=== PATIENT | male | born 1975 | race Caucasian/White ===

== ENCOUNTER 2018-07-05 20:09 | Inpatient (IN) | payer MEDICAID ==
--- NOTE | 2018-07-05 20:41 | C.PDOC ---
History Of Present Illness 42 year old male presents to the ED for evaluation of right flank pain and right upper quadrant pain since this morning. Patient reports some vomiting and red urine. Denies fever, chills, trauma, injuries, and any other associated s ymptoms. Time Seen by Provider: 07/05/18 20:38 Chief Complaint (Nursing): Abdominal Pain History Per: Patient History/Exam Limitations: no limitations Onset/Duration Of Symptoms: Hrs Current Symptoms Are (Timing): Still Present Context: Other Severity: Severe Pain Scale Rating Of: 6 Location Of Pain/Discomfort: RUQ, Epigastric Radiation Of Pain To:: Back Quality Of Discomfort: Sharp, Stabbing Associated Symptoms: Nausea, Vomiting, Back Pain. denies: Fever, Chills Exacerbating Factors: None Alleviating Factors: None Last Bowel Movement: Today Recent travel outside of the [place]: No Additional History Per: Patient, Family Past Medical History Reviewed: Historical Data, Nursing Documentation, Vital Signs Vital Signs: Last Vital Signs Temp 97.9 F 07/05/18 20:29 Pulse 82 07/05/18 20:29 Resp 22 07/05/18 20:29 BP 156/104 H 07/05/18 20:29 Pulse Ox 98 07/05/18 20:29 Family History: States: Unknown Family Hx - Social History Hx Alcohol Use: No Hx Substance Use: No - Immunization History Hx Tetanus Toxoid Vaccination: No Hx Influenza Vaccination: No Hx Pneumococcal Vaccination: No Review Of Systems Constitutional: Negative for: Fever, Chills, Other ((-) trauma. (-) injuries.) Eyes: Negative for: Vision Change Cardiovascular: Negative for: Chest Pain Respiratory: Negative for: Shortness of Breath Gastrointestinal: Positive for: Vomiting, Abdominal Pain (right upper quadrant pain. ), Other (right flank pain.) Genitourinary: Negative for: Dysuria Musculoskeletal: Negative for: Back Pain Skin: Positive for: Jaundice. Negative for: Rash Neurological: Negative for: Weakness Psych: Negative for: Anxiety Physical Exam - Physical Exam Appears: Non-toxic Skin: Warm, Dry, Jaundice Head: Normacephalic Eye(s): bilateral: Normal Inspection, Scleral Icterus Oral Mucosa: Moist Neck: Trachea Midline, Supple Chest: Symmetrical, No Deformity Cardiovascular: Rhythm Regular, No Murmur Respiratory: No Rales, No Rhonchi, No Wheezing Gastrointestinal/Abdominal: Normal Exam, Soft, Tenderness (tenderness over the right upper quandrant and right flank area. ), No Distention, Guarding ( voluntary.), No Rebound Back: Normal Inspection Extremity: Normal ROM Extremity: Bilateral: Atraumatic, Normal ROM Pulses: Left Dorsalis Pedis: Normal, Right Dorsalis Pedis: Normal Neurological/Psych: Oriented x3, Normal Speech, Normal Cognition Gait: Steady ED Course And Treatment - Laboratory Results Result Diagrams: 07/05/18 20:56 07/05/18 20:56 O2 Sat by Pulse Oximetry: 98 (RA) Pulse Ox Interpretation: Normal Progress Note: Plan: Blood sent. Urinalysis. Pepcid. Toradol. Zofran, abx Disposition Discussed With Dr.: Alber Guzman Comment: accepted the pt onhis service and took over the care at 11:37PM Doctor Will See Patient In The: ED Counseled Patient/Family Regarding: Studies Performed, Diagnosis - Disposition Disposition: HOSPITALIZED Disposition Time: 20:41 Condition: FAIR Forms: Motiga (Arabic) - Clinical Impression Clinical Impression: Jaundice, Duodenitis, Elevated liver enzymes, Pancreatitis, Abdominal pain - Scribe Statement The provider has reviewed the documentation as recorded by the Scribe (Kristyn Wilkins) Provider Attestation: All medical record entries made by the Scribe were at my direction and personally dictated by me. I have reviewed the chart and agree that the record accurately reflects my personal performance of the history, physical exam, medical decision making, and the department course for this patient. I have also personally directed, reviewed, and agree with the discharge instructions and disposition. Decision To Admit - Pt Status Changed To: Hospital Disposition Of: Inpatient - Admit Certification Admit to Inpatient:: After my assessment, the patient will require hospitalization for at least two midnights. This is because of the severity of symptoms shown, intensity of services needed, and/or the medical risk in this patient being treated as an outpatient. - InPatient: Physician Admission Certification:: After my assessment, the patient will require hospitalization for at least two midnights. This is because of the severity of symptoms shown, intensity of services needed, and/or the medical risk in this patient being treated as an outpatient. - . Bed Request Type: Regular Admitting Physician: Alber Guzman Patient Diagnosis: Abdominal pain, Jaundice, Elevated liver enzymes, Pancreatitis, Duodenitis
[2018-07-05] MEDS ORDERED: Sodium Chloride 0.9% 2,000 ML IV ONE (20:43)
[2018-07-05 21:03] LABS: BASO # 0.1 K/uL (0.0-0.2); EOS % 0.2 % (0.0-4.0)
[2018-07-05 21:11] LABS: BASO % 0.4 % (0.0-2.0); LYMPH # 1.2 K/uL (1.0-4.3); LYMPH % 8.7 % (20.0-40.0); MEAN CELL VOLUME 87.5 fL (80.0-94.0); MEAN CORPUSCULAR HEMOGLOBIN 30.2 pg (27.0-31.0); MEAN CORPUSCULAR HGB CONC 34.5 g/dL (33.0-37.0); MEAN PLATELET VOLUME 8.7 fL (7.2-11.7); MONO # 1.1 K/uL (0.0-0.8); MONO % 8.2 % (0.0-10.0); NEUT # 11.3 K/uL (1.8-7.0); NEUT % 82.5 % (50.0-75.0); NRBC % 0.2 % (0.0-2.0); PLATELET COUNT 249 K/uL (130-400); RBC 5.96 Mil/uL (4.40-5.90); RED CELL DISTRIBUTION WIDTH 14.4 % (11.5-14.5); WHITE BLOOD COUNT 13.7 K/uL (4.8-10.8)
[2018-07-05 21:19] LABS: ALB/GLOB RATIO 1.2 (1.0-2.1); ALBUMIN 4.5 g/dL (3.5-5.0); ALT/SGPT 675 U/L (21-72); AST/SGOT 442 U/L (17-59); BLOOD UREA NITROGEN 15 mg/dL (9-20); CALCIUM 9.6 mg/dl (8.6-10.4); GFR NON-AFRICAN AMERICAN 51
[2018-07-05] MEDS ORDERED: Piperacillin/Tazobact 3.375 gm 100 ML IVPB STA (21:20)
[2018-07-05 21:21] LABS: INR 1.1; PROTHROMBIN TIME 11.6 SECONDS (9.7-12.2)
[2018-07-05 21:30] LABS: BANDS 1 % (0-2); LYMPHOCYTE 13 % (20-40); MONOCYTE 9 % (0-10); NEUTROPHIL 76 % (50-75); PLATELET CLUMPS PRESENT; REACTIVE LYMPHOCYTES 1 % (0-0); TOTAL CELLS COUNTED 100
[2018-07-05 21:31] LABS: PLATELET ESTIMATE NORMAL (NORMAL)
[2018-07-05] MEDS ORDERED: Piperacillin/Tazobact 3.375 gm 100 ML IVPB ONE (21:38)
[2018-07-05 21:45] LABS: LIPASE 17967 U/L (23-300)
[2018-07-05 21:48] LABS: SQUAMOUS EPITHIAL 1 /hpf (0-5); URINE BACTERIA RARE (<OCC); URINE BILIRUBIN 2+ (NEGATIVE); URINE BLOOD NEGATIVE (NEGATIVE); URINE CLARITY Hazy (Clear); URINE COLOR Amber (YELLOW); URINE GLUCOSE (UA) NORMAL (Normal); URINE LEUKOCYTE ESTERASE NEG Leu/uL (Negative); URINE PROTEIN 1+ mg/dL (NEGATIVE)
[2018-07-05] MEDS ORDERED: Iodixanol 320 MG/ML 100 ML BOTTLE IV ONE (21:48)
[2018-07-05] MEDS ORDERED: metroNIDAZOLE IV 500 mg/100 ml 500 MG/100 ML BAG IVPB SCH (23:45)
[2018-07-06] MEDS ORDERED: Lactated Ringer's 1,000 ML IV ONE ×2 (05:33→05:34)
[2018-07-06] MEDS ORDERED: Potassium Ch 20mEq in D5-1/2NS 1,000 ML IV SCH (05:45)
--- NOTE | 2018-07-06 05:49 | CP.PCM.HP ---
<Alber Guzman P - Last Filed: 07/06/18 09:04> Meds Allergies/Adverse Reactions: Allergies Allergy/AdvReac Type Severity Reaction Status Date / Time No Known Allergies Allergy Verified 07/05/18 20:34 Results - Vital Signs Recent Vital Signs: Last Vital Signs Temp 98.1 F 07/06/18 07:09 Pulse 72 07/06/18 07:09 Resp 20 07/06/18 07:09 BP 126/77 07/06/18 07:09 Pulse Ox 96 07/06/18 07:09 - Labs Result Diagrams: 07/05/18 20:56 07/05/18 20:56 Labs: Laboratory Results - last 24 hr 07/05/18 07/05/18 07/05/18 20:56 20:56 20:56 WBC 13.7 H RBC 5.96 H Hgb 18.0 Hct 52.1 H MCV 87.5 MCH 30.2 MCHC 34.5 RDW 14.4 Plt Count 249 MPV 8.7 Neut % (Auto) 82.5 H Lymph % (Auto) 8.7 L [place] % (Auto) 8.2 Eos % (Auto) 0.2 Baso % (Auto) 0.4 Neut # (Auto) 11.3 H Lymph # (Auto) 1.2 [place] # (Auto) 1.1 H Eos # (Auto) 0.0 Baso # (Auto) 0.1 Neutrophils % (Manual) 76 H Band Neutrophils % 1 Lymphocytes % (Manual) 13 L Reactive Lymphs % 1 H Monocytes % (Manual) 9 Platelet Estimate Normal Plt Clumps, EDTA Present RBC Morphology Normal PT 11.6 INR 1.1 APTT 32 Sodium 139 Potassium 4.1 Chloride 102 Carbon Dioxide 25 Anion Gap 16 BUN 15 Creatinine 1.5 Est GFR ( Amer) > 60 Est GFR (Non-Af Amer) 51 Random Glucose 122 H Calcium 9.6 Total Bilirubin 5.6 H AST 442 H ALT 675 H Alkaline Phosphatase 196 H Total Protein 8.2 Albumin 4.5 Globulin 3.7 Albumin/Globulin Ratio 1.2 Lipase 53355 H Urine Color Urine Clarity Urine pH Ur Specific [place] Urine Protein Urine Glucose (UA) Urine Ketones Urine Blood Urine Nitrate Urine Bilirubin Urine Urobilinogen Ur Leukocyte Esterase Urine WBC (Auto) Urine RBC (Auto) Ur Squamous Epith Cells Urine Bacteria 07/05/18 21:10 WBC RBC Hgb Hct MCV MCH MCHC RDW Plt Count MPV Neut % (Auto) Lymph % (Auto) [place] % (Auto) Eos % (Auto) Baso % (Auto) Neut # (Auto) Lymph # (Auto) [place] # (Auto) Eos # (Auto) Baso # (Auto) Neutrophils % (Manual) Band Neutrophils % Lymphocytes % (Manual) Reactive Lymphs % Monocytes % (Manual) Platelet Estimate Plt Clumps, EDTA RBC Morphology PT INR APTT Sodium Potassium Chloride Carbon Dioxide Anion Gap BUN Creatinine Est GFR ( Amer) Est GFR (Non-Af Amer) Random Glucose Calcium Total Bilirubin AST ALT Alkaline Phosphatase Total Protein Albumin Globulin Albumin/Globulin Ratio Lipase Urine Color [place] Urine Clarity Hazy Urine pH 5.0 Ur Specific [place] 1.019 Urine Protein 1+ H Urine Glucose (UA) Normal Urine Ketones Negative Urine Blood Negative Urine Nitrate Negative Urine Bilirubin 2+ H Urine Urobilinogen 4.0 Ur Leukocyte Esterase Neg Urine WBC (Auto) 1 Urine RBC (Auto) 1 Ur Squamous Epith Cells 1 Urine Bacteria Rare Attending/Attestation - Attestation I have personally seen and examined this patient.: Yes I have fully participated in the care of the patient.: Yes I have reviewed all pertinent clinical information: Yes Notes (Text): 07/06/18 09:04 * Suspect gall stone pancreatitis * H/o hiatal hernia * Tobacco abuse, counselled Plan * MRCP * USG * GI consult * NPO * IVF * PPI, dvt prophylaxis * Surg consult eventually will need gb removal * See orders for detail. 07/06/18 09:07 <Phoebe Springer P - Last Filed: 07/06/18 09:32> History of Present Illness - History of Present Illness History of Present Illness: H&P for hospitalist service CC: Abdominal pain HPI: 42 year old male with no PMHx presents to ED complaining of stabbing RUQ abdominal and R flank pain that began gradually 2 nights ago and severely worsened yesterday morning. Pain worsens with lying down and improves immediately after vomiting. Patient states he has had nausea and vomiting at bedtime and after eating "for years", but now N/V are persistent since yesterday. States he has not been able to tolerate PO intake in the last day. Patient also reports dark urine, which he experienced previously when he was living in [place] and improved after taking antibiotics. Patent also reports intermittent diarrhea. Denies fever, chills, diaphoresis, melena, hematochezia, hematemesis, weight loss, dysuria, hematuria, urinary frequency, chest pain, palpitations, shortness of breath, and cough. PMHx: Denies PSHx: Denies Meds: None Allergies: NKDA FamHx: Denies SocHx: Smokes 1ppd, denies alcohol and drugs Review of Systems: -Gen: No fever, No chills, No headache, No lethargy, No weakness. -HEENT: No dizziness, No change in vision, No change in hearing, No sore throat, No dysphagia, No nasal congestion, No mucous. -Cardio: No chest pain, No palpitations, No lower extremity edema, No orthopnea. -Resp: No cough, No dyspnea, No hemoptysis, No wheezing, No pain on insp iration. -GI: + abdominal pain, + nausea/vomiting, + diarrhea, No constipation, No hematochezia, No hematemesis. -: No dysuria, No urinary freq, No incontinence, No hematuria, No change in urinary stream. -MSK: No back pain, No muscle weakness, No radiating pain. -Skin: No itching,+jaundice, No lesions. -Neuro: No confusion, No numbness, No tingling, No focal weakness, No radicular pain, No syncope. -Psych: No anxiety, No depression, No H/I, No S/I, No hallucinations. Present on Admission - Present on Admission Any Indicators Present on Admission: No Past Patient History - Past Medical History & Family History Past Medical History?: No - Past Social History Smoking Status: Heavy Smoker > 10 Cigarettes Daily - CARDIAC Hx Cardiac Disorders: No - PULMONARY Hx Respiratory Disorders: No - NEUROLOGICAL Hx Neurological Disorder: No - HEENT Hx HEENT Problems: No - RENAL Hx Chronic Kidney Disease: No - ENDOCRINE/METABOLIC Hx Endocrine Disorders: No - HEMATOLOGICAL/ONCOLOGICAL Hx Blood Disorders: No - INTEGUMENTARY Hx Dermatological Problems: No - MUSCULOSKELETAL/RHEUMATOLOGICAL Hx Musculoskeletal Disorders: No Hx Falls: No - GASTROINTESTINAL Hx Gastrointestinal Disorders: No - GENITOURINARY/GYNECOLOGICAL Hx Genitourinary Disorders: No - PSYCHIATRIC Hx Psychophysiologic Disorder: No Hx Substance Use: No - SURGICAL HISTORY Hx Surgeries: No - ANESTHESIA Hx Anesthesia: No Physical Exam - Constitutional Appears: Other (uncomfortable in pain) - Head Exam Head Exam: ATRAUMATIC, NORMOCEPHALIC - Eye Exam Eye Exam: EOMI, PERRL, Scleral icterus - ENT Exam ENT Exam: Mucous Membranes Dry - Neck Exam Neck exam: Positive for: Full Rom, Normal Inspection - Respiratory Exam Respiratory Exam: Clear to Auscultation Bilateral. absent: Rales, Rhonchi, Wheezes - Cardiovascular Exam Cardiovascular Exam: RRR, +S1, +S2 - GI/Abdominal Exam GI & Abdominal Exam: Normal Bowel Sounds, Organomegaly (Hepatomegaly), Soft, Tenderness (RUQ). absent: Guarding, Rebound - Extremities Exam Extremities exam: Positive for: normal inspection. Negative for: calf te nderness, pedal edema - Neurological Exam Neurological exam: Alert, CN II-XII Intact, Oriented x3 - Psychiatric Exam Psychiatric exam: Normal Affect, Normal Mood - Skin Skin Exam: Dry, Intact (jaundiced), Warm Results - Vital Signs Recent Vital Signs: Last Vital Signs Temp 97.3 F L 07/06/18 01:33 Pulse 66 07/06/18 01:33 Resp 20 07/06/18 01:33 BP 129/83 07/06/18 01:33 Pulse Ox 98 07/06/18 01:33 - Labs Result Diagrams: 07/05/18 20:56 07/05/18 20:56 Labs: Laboratory Results - last 24 hr 07/05/18 07/05/18 07/05/18 20:56 20:56 20:56 WBC 13.7 H RBC 5.96 H Hgb 18.0 Hct 52.1 H MCV 87.5 MCH 30.2 MCHC 34.5 RDW 14.4 Plt Count 249 MPV 8.7 Neut % (Auto) 82.5 H Lymph % (Auto) 8.7 L [place] % (Auto) 8.2 Eos % (Auto) 0.2 Baso % (Auto) 0.4 Neut # (Auto) 11.3 H Lymph # (Auto) 1.2 [place] # (Auto) 1.1 H Eos # (Auto) 0.0 Baso # (Auto) 0.1 Neutrophils % (Manual) 76 H Band Neutrophils % 1 Lymphocytes % (Manual) 13 L Reactive Lymphs % 1 H Monocytes % (Manual) 9 Platelet Estimate Normal Plt Clumps, EDTA Present RBC Morphology Normal PT 11.6 INR 1.1 APTT 32 Sodium 139 Potassium 4.1 Chloride 102 Carbon Dioxide 25 Anion Gap 16 BUN 15 Creatinine 1.5 Est GFR ( Amer) > 60 Est GFR (Non-Af Amer) 51 Random Glucose 122 H Calcium 9.6 Total Bilirubin 5.6 H AST 442 H ALT 675 H Alkaline Phosphatase 196 H Total Protein 8.2 Albumin 4.5 Globulin 3.7 Albumin/Globulin Ratio 1.2 Lipase 18350 H Urine Color Urine Clarity Urine pH Ur Specific [place] Urine Protein Urine Glucose (UA) Urine Ketones Urine Blood Urine Nitrate Urine Bilirubin Urine Urobilinogen Ur Leukocyte Esterase Urine WBC (Auto) Urine RBC (Auto) Ur Squamous Epith Cells Urine Bacteria 07/05/18 21:10 WBC RBC Hgb Hct MCV MCH MCHC RDW Plt Count MPV Neut % (Auto) Lymph % (Auto) [place] % (Auto) Eos % (Auto) Baso % (Auto) Neut # (Auto) Lymph # (Auto) [place] # (Auto) Eos # (Auto) Baso # (Auto) Neutrophils % (Manual) Band Neutrophils % Lymphocytes % (Manual) Reactive Lymphs % Monocytes % (Manual) Platelet Estimate Plt Clumps, EDTA RBC Morphology PT INR APTT Sodium Potassium Chloride Carbon Dioxide Anion Gap BUN Creatinine Est GFR ( Amer) Est GFR (Non-Af Amer) Random Glucose Calcium Total Bilirubin AST ALT Alkaline Phosphatase Total Protein Albumin Globulin Albumin/Globulin Ratio Lipase Urine Color [place] Urine Clarity Hazy Urine pH 5.0 Ur Specific [place] 1.019 Urine Protein 1+ H Urine Glucose (UA) Normal Urine Ketones Negative Urine Blood Negative Urine Nitrate Negative Urine Bilirubin 2+ H Urine Urobilinogen 4.0 Ur Leukocyte Esterase Neg Urine WBC (Auto) 1 Urine RBC (Auto) 1 Ur Squamous Epith Cells 1 Urine Bacteria Rare Assessment & Plan - Assessment and Plan (Free Text) Plan: 42 year old male with no PMHx presents to ED complaining of burning RUQ abdominal pain, nausea, and vomiting. Abdominal pain duodenitis Pancreatitis Lipase: 59873 CT abdomen/Pelvis: findings consistent with severe acute duodenitis with probable recently perforated duodenal ulcer. (see full report) F/u RUQ ultrasound, MRCP NPO except ice chips Ceftriaxone 1g IV daily Flagyl 500mg IV Q8H Zofran 4mg Q6H PRN IVF Stool ova and parasite GI consult, help appreciated. Transaminitis -AST: 442 -ALT: 675 -Alk Phos: 196 -monitor Ppx SCDs No chemical anticoagulation indicated at this time protonix 40 daily
[2018-07-06] MEDS: metroNIDAZOLE IV 500 mg/100 ml 500 MG/100 ML BAG IVPB SCH ×3 (07:00→21:26)
--- NOTE | 2018-07-06 08:57 | CP.PCM.CON ---
History of Present Illness - History of Present Illness History of Present Illness: 42 yo male denies etoh use, admitted with abdom pain. Found to have elev lipase and LFTs. Review of Systems - Constitutional Constitutional: absent: Fever, Weight Gain - Cardiovascular Cardiovascular: absent: Chest Pain, Dyspnea - Respiratory Respiratory: absent: Dyspnea, Hemoptysis, Wheezing - Gastrointestinal Gastrointestinal: Abdominal Pain, Diarrhea. absent: Coffee Ground Emesis, Dysphagia, Hematemesis, Hematochezia, Melena - Genitourinary Genitourinary: absent: Hematuria - Musculoskeletal Musculoskeletal: absent: Muscle Cramps - Integumentary Integumentary: Jaundice. absent: Rash - Neurological Neurological: absent: Convulsions Past Patient History - Past Medical History & Family History Past Medical History?: No - Past Social History Smoking Status: Heavy Smoker > 10 Cigarettes Daily - CARDIAC Hx Cardiac Disorders: No - PULMONARY Hx Respiratory Disorders: No - NEUROLOGICAL Hx Neurological Disorder: No - HEENT Hx HEENT Problems: No - RENAL Hx Chronic Kidney Disease: No - ENDOCRINE/METABOLIC Hx Endocrine Disorders: No - HEMATOLOGICAL/ONCOLOGICAL Hx Blood Disorders: No - INTEGUMENTARY Hx Dermatological Problems: No - MUSCULOSKELETAL/RHEUMATOLOGICAL Hx Musculoskeletal Disorders: No Hx Falls: No - GASTROINTESTINAL Hx Gastrointestinal Disorders: No - GENITOURINARY/GYNECOLOGICAL Hx Genitourinary Disorders: No - PSYCHIATRIC Hx Psychophysiologic Disorder: No Hx Substance Use: No - SURGICAL HISTORY Hx Surgeries: No - ANESTHESIA Hx Anesthesia: No Meds Allergies/Adverse Reactions: Allergies Allergy/AdvReac Type Severity Reaction Status Date / Time No Known Allergies Allergy Verified 07/05/18 20:34 - Medications Medications: Current Medications Metronidazole (Flagyl) 500 mg in 100 mls @ 100 mls/hr IVPB STAT [facility]ONG; Protocol Last Admin: 07/06/18 06:53 Dose: 100 mls/hr Metronidazole (Flagyl) 500 mg in 100 mls @ 100 mls/hr IVPB Q8H [facility]; Protocol Last Admin: 07/06/18 07:00 Dose: Not Given Ceftriaxone Sodium (Rocephin Iv 1 Gm Duplex) 50 mls @ 100 mls/hr IVPB DAILY [facility]; Protocol Potassium Chloride/Dextrose/Sod Cl (Potassium Chl 20 Meq In D5-1/2ns) 1,000 mls @ 100 mls/hr IV .Q10H [facility]ONG Last Admin: 07/06/18 06:52 Dose: 100 mls/hr Influenza Virus Vaccine (Fluzone Quad [id number]) 60 mcg IM .ONCE ONE Stop: 07/07/18 10:01 Ketorolac Tromethamine (Toradol) 15 mg IVP Q6 [facility] Last Admin: 07/06/18 07:02 Dose: 15 mg Ondansetron HCl (Zofran Inj) 4 mg IVP Q6H PRN PRN Reason: Nausea/Vomiting Last Admin: 07/06/18 06:50 Dose: 4 mg Pantoprazole Sodium (Protonix Inj) 40 mg IVP DAILY [facility] Physical Exam - Constitutional Appears: Non-toxic - Respiratory Exam Respiratory Exam: Clear to Auscultation Bilateral - Cardiovascular Exam Cardiovascular Exam: RRR - GI/Abdominal Exam GI & Abdominal Exam: Normal Bowel Sounds, Soft, Tenderness. absent: Guarding, Mass, Rebound, Rigid Additional comments: mild epig tenderness - Extremities Exam Extremities exam: Negative for: pedal edema - Neurological Exam Neurological exam: Alert, Oriented x3 Results - Vital Signs Recent Vital Signs: Last Vital Signs Temp 98.1 F 07/06/18 07:09 Pulse 72 07/06/18 07:09 Resp 20 07/06/18 07:09 BP 126/77 07/06/18 07:09 Pulse Ox 96 07/06/18 07:09 - Labs Result Diagrams: 07/05/18 20:56 07/05/18 20:56 Labs: Laboratory Results - last 24 hr 07/05/18 07/05/18 07/05/18 20:56 20:56 20:56 WBC 13.7 H RBC 5.96 H Hgb 18.0 Hct 52.1 H MCV 87.5 MCH 30.2 MCHC 34.5 RDW 14.4 Plt Count 249 MPV 8.7 Neut % (Auto) 82.5 H Lymph % (Auto) 8.7 L [place] % (Auto) 8.2 Eos % (Auto) 0.2 Baso % (Auto) 0.4 Neut # (Auto) 11.3 H Lymph # (Auto) 1.2 [place] # (Auto) 1.1 H Eos # (Auto) 0.0 Baso # (Auto) 0.1 Neutrophils % (Manual) 76 H Band Neutrophils % 1 Lymphocytes % (Manual) 13 L Reactive Lymphs % 1 H Monocytes % (Manual) 9 Platelet Estimate Normal Plt Clumps, EDTA Present RBC Morphology Normal PT 11.6 INR 1.1 APTT 32 Sodium 139 Potassium 4.1 Chloride 102 Carbon Dioxide 25 Anion Gap 16 BUN 15 Creatinine 1.5 Est GFR ( Amer) > 60 Est GFR (Non-Af Amer) 51 Random Glucose 122 H Calcium 9.6 Total Bilirubin 5.6 H AST 442 H ALT 675 H Alkaline Phosphatase 196 H Total Protein 8.2 Albumin 4.5 Globulin 3.7 Albumin/Globulin Ratio 1.2 Lipase 95125 H Urine Color Urine Clarity Urine pH Ur Specific [place] Urine Protein Urine Glucose (UA) Urine Ketones Urine Blood Urine Nitrate Urine Bilirubin Urine Urobilinogen Ur Leukocyte Esterase Urine WBC (Auto) Urine RBC (Auto) Ur Squamous Epith Cells Urine Bacteria 07/05/18 21:10 WBC RBC Hgb Hct MCV MCH MCHC RDW Plt Count MPV Neut % (Auto) Lymph % (Auto) [place] % (Auto) Eos % (Auto) Baso % (Auto) Neut # (Auto) Lymph # (Auto) [place] # (Auto) Eos # (Auto) Baso # (Auto) Neutrophils % (Manual) Band Neutrophils % Lymphocytes % (Manual) Reactive Lymphs % Monocytes % (Manual) Platelet Estimate Plt Clumps, EDTA RBC Morphology PT INR APTT Sodium Potassium Chloride Carbon Dioxide Anion Gap BUN Creatinine Est GFR ( Amer) Est GFR (Non-Af Amer) Random Glucose Calcium Total Bilirubin AST ALT Alkaline Phosphatase Total Protein Albumin Globulin Albumin/Globulin Ratio Lipase Urine Color [place] Urine Clarity Hazy Urine pH 5.0 Ur Specific [place] 1.019 Urine Protein 1+ H Urine Glucose (UA) Normal Urine Ketones Negative Urine Blood Negative Urine Nitrate Negative Urine Bilirubin 2+ H Urine Urobilinogen 4.0 Ur Leukocyte Esterase Neg Urine WBC (Auto) 1 Urine RBC (Auto) 1 Ur Squamous Epith Cells 1 Urine Bacteria Rare Assessment & Plan (1) Abdominal pain Assessment and Plan: pancreatitis Status: Acute (2) Elevated liver enzymes Assessment and Plan: consider hepatitis or biliary dis Status: Acute (3) Jaundice Status: Acute (4) Pancreatitis Assessment and Plan: Denies ETOH. Denies cocaine. Consider lipids, biliary stone. REC: Check sono, CT. Check lipid profile, CHAD, hep profile. NPO. Check MRCP. IV fluids 250 cc's/hr, Above discussed with Dr Choi and RN. Status: Acute
[2018-07-06] MEDS ORDERED: cefTRIAXone 2 GM in Sodium Chloride 0.9% 100 ML IVPB SCH (10:00)
--- NOTE | 2018-07-06 10:37 | CP.PCM.PN ---
<Ana Rosa Choi - Last Filed: 07/06/18 15:39> Subjective - Date & Time of Evaluation Date of Evaluation: 07/06/18 Time of Evaluation: 10:37 - Subjective Subjective: Patient seen and examined at bedside this morning with Dr. Marquez, attending. Patient states his pain has gone down from 10+/10 to 3-4/10. He denies chest pain, SOB, nausea/vomiting (resolved), fever, chills, night sweats. Patient states he has not eaten for 48 hours. 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 Objective - Vital Signs/Intake and Output Vital Signs (last 24 hours): Temp Pulse Resp BP Pulse Ox 98.1 F 72 20 126/77 96 07/06/18 07:09 07/06/18 07:09 07/06/18 07:09 07/06/18 07:09 07/06/18 07:09 - Medications Medications: Current Medications Metronidazole (Flagyl) 500 mg in 100 mls @ 100 mls/hr IVPB Q8H [facility]; Protocol Last Admin: 07/06/18 07:00 Dose: Not Given Ceftriaxone Sodium (Rocephin Iv 1 Gm Duplex) 50 mls @ 100 mls/hr IVPB DAILY [facility]; Protocol Sodium Chloride (Sodium Chloride 0.9%) 1,000 mls @ 200 mls/hr IV .Q5H [facility] Stop: 07/06/18 15:00 Sodium Chloride (Sodium Chloride 0.9%) 1,000 mls @ 200 mls/hr IV .Q5H [facility] Stop: 07/06/18 20:00 Sodium Chloride (Sodium Chloride 0.9%) 1,000 mls @ 200 mls/hr IV .Q5H [facility] Stop: 07/07/18 01:00 Influenza Virus Vaccine (Fluzone Quad [id number]) 60 mcg IM .ONCE ONE Stop: 07/07/18 10:01 Ketorolac Tromethamine (Toradol) 15 mg IVP Q6 [facility] Last Admin: 07/06/18 07:02 Dose: 15 mg Ondansetron HCl (Zofran Inj) 4 mg IVP Q6H PRN PRN Reason: Nausea/Vomiting Last Admin: 07/06/18 06:50 Dose: 4 mg Pantoprazole Sodium (Protonix Inj) 40 mg IVP DAILY [facility] Last Admin: 07/06/18 09:46 Dose: 40 mg - Labs Labs: 07/05/18 20:56 07/05/18 20:56 PT 11.6 SECONDS (9.7-12.2) 07/05/18 20:56 INR 1.1 07/05/18 20:56 APTT 32 SECONDS (21-34) 07/05/18 20:56 - Constitutional Appears: Well, Non-toxic - Head Exam Head Exam: ATRAUMATIC, NORMAL INSPECTION - Eye Exam Eye Exam: EOMI, Normal appearance Additional comments: no scleral icterus - ENT Exam ENT Exam: Mucous Membranes Moist, Normal Exam Additional comments: slightly jaundiced frenulum tongue - Neck Exam Neck Exam: Normal Inspection. absent: Lymphadenopathy, Meningismus, Tenderness, Thyromegaly - Respiratory Exam Respiratory Exam: Clear to Ausculation Bilateral, NORMAL BREATHING PATTERN. absent: Rales, Rhonchi, Wheezes, Respiratory Distress, Stridor - Cardiovascular Exam Cardiovascular Exam: REGULAR RHYTHM. absent: Diastolic murmur, Irregular Rhythm, Murmur - GI/Abdominal Exam GI & Abdominal Exam: Soft, Normal Bowel Sounds. absent: Firm, Guarding Additional comments: mild tenderness to palpation epigastrum - Extremities Exam Extremities Exam: Normal Capillary Refill, Normal Inspection. absent: Tenderness Additional comments: peripheral pulses strong, no edema - Back Exam Back Exam: NORMAL INSPECTION. absent: CVA tenderness (L), CVA tenderness (R) - Neurological Exam Neurological Exam: Alert, Awake, Oriented x3 - Psychiatric Exam Psychiatric exam: Normal Affect, Normal Mood - Skin Skin Exam: Dry, Intact, Normal Color, Warm Assessment and Plan - Assessment and Plan (Free Text) Assessment: 42 year old male with no PMHx presents to ED complaining of burning RUQ abdominal pain, nausea, and vomiting. Admitted for possible gallstone pancreatitis. Pancreatitis [place] [id number] abdomen/Pelvis: findings consistent with severe acute duodenitis with probable recently perforated duodenal ulcer. (see full report). -MRCP w/ contrast ordered per request of Dr. Turner, GI -NPO except ice chips, then post MRCP if no further work up can gradually advance diet -Ceftriaxone 1g IV daily (started 07/06 at 8:59am) -Flagyl 500mg IV Q8H (started in the ED x 1 on 07/05 at 21:20, then continued inpatient 07/06) -Zofran 4mg Q6H PRN -IVF 100 cc/h increased to 200 cc/hr, until about 1am then mIVF at 130 mL/hr; will inform night team -pending Stool ova and parasites -GI consulted (Dr. Suarez consulted on admission) Transaminitis -On admission: AST: 442, ALT: 675, Alk Phos: 196. Not consistent pattern w/ EtOH liver disease and patient denies EtOH. Likely 2/2 gallstone pancreatitis (admission TBili 5.6), but will need MRCP to confirm. -pending hepatitis panel -CMP qAM, trend LFTs GERD/Hiatal hernia -Per CT abd/pelvis, patient w/ hiatal hernia, which is consistent with his complaint of acid reflux -He will need to be d/josé with PPI and f/u with primary care. If not resolved, possible elective surgery -Inpatient, pt to have protonix 40 mg IV daily Ppx DVT: SCDs GI: protonix 40mg IV daily Diet: NPO Case d/w Dr. Venita Choi, DO PGY1 <Michael Marquez - Last Filed: 07/07/18 20:43> Objective - Vital Signs/Intake and Output Vital Signs (last 24 hours): Temp Pulse Resp BP Pulse Ox 98.3 F 80 20 125/79 95 07/07/18 16:00 07/07/18 16:00 07/07/18 16:00 07/07/18 16:00 07/07/18 16:00 Intake and Output: 07/07/18 07/08/18 18:59 06:59 Intake Total 1600 Balance 1600 - Medications Medications: Current Medications Sodium Chloride (Sodium Chloride 0.9%) 1,000 mls @ 200 mls/hr IV .Q5H [facility] Last Admin: 07/07/18 09:50 Dose: 200 mls/hr Ketorolac Tromethamine (Toradol) 15 mg IVP Q6 [facility] Last Admin: 07/07/18 17:31 Dose: 15 mg Ondansetron HCl (Zofran Inj) 4 mg IVP Q6H PRN PRN Reason: Nausea/Vomiting Last Admin: 07/06/18 06:50 Dose: 4 mg Pantoprazole Sodium (Protonix Inj) 40 mg IVP DAILY [facility] Last Admin: 07/07/18 09:51 Dose: 40 mg - Labs Labs: 07/07/18 11:44 07/07/18 11:44 PT 11.6 SECONDS (9.7-12.2) 07/05/18 20:56 INR 1.1 07/05/18 20:56 APTT 32 SECONDS (21-34) 07/05/18 20:56 Attending/Attestation - Attestation I have personally seen and examined this patient.: Yes I have fully participated in the care of the patient.: Yes I have reviewed all pertinent clinical information, including history, physical exam and plan: Yes Notes (Text): 07/07/18 20:43 This is a late entry. Patient was together with resident Dr. Choi and care of this patient was gone over in detail with Dr. Choi on 07/06/18. Michael Marquez D.O.
[2018-07-06] MEDS: Sodium Chloride 0.9% 1,000 ML IV SCH ×8 (10:55→23:15)
[2018-07-06] MEDS: cefTRIAXone IV 1 gm in Dextros 50 ML IVPB SCH (10:55)
--- NOTE | 2018-07-06 11:08 | CT ---
Date of service: 07/05/2018 PROCEDURE: CT Abdomen and Pelvis with contrast HISTORY: ruq pain, elevated liver enzymes COMPARISON: None. TECHNIQUE: Contrast dose: 100 mL Visipaque IV Radiation dose: Total exam DLP = 392.35 mGy-cm. This CT exam was performed using one or more of the following dose reduction techniques: Automated exposure control, adjustment of the mA and/or kV according to patient size, and/or use of iterative reconstruction technique. FINDINGS: LOWER THORAX: Small focal consolidation within the lingula. No visible pleural effusion or pneumothorax. Moderate-sized hiatal hernia. LIVER: Unremarkable. GALLBLADDER AND BILE DUCTS: Unremarkable. PANCREAS: Inflammatory stranding noted at the level of the pancreas either arising from inflammatory changes related to the duodenum with the pancreas itself. Pancreatic head appears edematous. SPLEEN: Unremarkable. ADRENALS: Unremarkable. KIDNEYS AND URETERS: The kidneys enhance symmetrically. No hydronephrosis or obstructing calculus identified. VASCULATURE: No aortic aneurysm. No atherosclerotic calcification or mural plaque present. BOWEL: Stomach is nondistended. Lack of oral contrast limits evaluation for bowel pathology. Bowel loops appear within normal limits of caliber without evidence of obstruction. Wall thickening of the proximal duodenum and associated inflammatory changes. APPENDIX: The appendix appears within normal limits of caliber. No secondary signs of acute appendicitis. PERITONEUM: No significant free fluid. No definite free air. LYMPH NODES: No bulky adenopathy identified. BLADDER: Unremarkable. REPRODUCTIVE: Unremarkable. BONES: No acute osseous abnormality is detected. OTHER FINDINGS: None. IMPRESSION: Duodenal wall thickening and marked inflammatory stranding involving the duodenum and the pancreas; origin of these inflammatory changes on clear. Pancreatic head appears edematous. Pancreatitis must be considered as well as duodenitis. Correlate clinically including amylase and lipase. Focal consolidation within the lingula, favored to represent atelectasis however pneumonia not excluded. Moderate-sized hiatal hernia. Preliminary impression was provided by [facility].
--- NOTE | 2018-07-06 11:18 | US ---
HISTORY: jaundice, RUQ pain COMPARISON: CT abdomen and pelvis with contrast performed 07/05/18 TECHNIQUE: Sonographic evaluation of the abdomen. FINDINGS: LIVER: Measures 14.5 cm in sagittal dimension. Echogenic liver may be seen in setting of hepatic parenchymal disease or fatty infiltration. No focal hepatic mass identified. The main portal vein appears patent with normal directional flow. No intrahepatic bile duct dilatation. GALLBLADDER: Gallstones. Gallbladder sludge. No gallbladder wall thickening. Negative sonographic Whittington's sign as assessed by the precinct commanding officer. COMMON BILE DUCT: Measures 4 mm. PANCREAS: Not well visualized. RIGHT KIDNEY: Measures 11.0 x 4.3 x 5.0 cm. No obstructing calculus or hydronephrosis identified. LEFT KIDNEY: Measures 11.6 x 5.1 x 4.5 cm. No obstructing calculus or hydronephrosis identified. SPLEEN: Measures approximately 10.8 cm. AORTA: Limited views appear unremarkable. No atherosclerotic calcification/plaque identified. IVC: Limited views appear unremarkable. OTHER FINDINGS: None. IMPRESSION: Echogenic liver may be seen in setting of hepatic parenchymal disease or fatty infiltration. Gallbladder sludge and gallstones. No evidence of gallbladder wall thickening or pericholecystic edema. Negative sonographic Whittington's sign as assessed by the precinct commanding officer.
[2018-07-06 14:13] LABS: BASO # 0.1 K/uL (0.0-0.2); EOS # 0.1 K/uL (0.0-0.7); EOS % 0.8 % (0.0-4.0); LYMPH # 1.4 K/uL (1.0-4.3); LYMPH % 10.6 % (20.0-40.0); MEAN CELL VOLUME 88.8 fL (80.0-94.0); MEAN CORPUSCULAR HEMOGLOBIN 30.3 pg (27.0-31.0); MEAN CORPUSCULAR HGB CONC 34.1 g/dL (33.0-37.0); MEAN PLATELET VOLUME 8.6 fL (7.2-11.7); MONO # 1.3 K/uL (0.0-0.8); MONO % 10.1 % (0.0-10.0); NEUT % 77.5 % (50.0-75.0); RBC 4.99 Mil/uL (4.40-5.90); RED CELL DISTRIBUTION WIDTH 13.9 % (11.5-14.5); WHITE BLOOD COUNT 12.9 K/uL (4.8-10.8)
[2018-07-06 14:17] LABS: HEMOGLOBIN 15.1 g/dL (12.0-18.0)
[2018-07-06 14:44] LABS: ALB/GLOB RATIO 1.2 (1.0-2.1); ALBUMIN 3.7 g/dL (3.5-5.0); ALT/SGPT 411 U/L (21-72); AST/SGOT 152 U/L (17-59); BLOOD UREA NITROGEN 19 mg/dL (9-20); CALCIUM 8.4 mg/dl (8.6-10.4); GFR NON-AFRICAN AMERICAN > 60; HDL CHOLESTEROL 54 mg/dL (30-70)
[2018-07-06 14:53] LABS: LDL CHOLESTEROL 89 mg/dL (0-129)
[2018-07-06 15:07] LABS: HEPATITIS B SURFACE AG Negative (NEGATIVE)
[2018-07-06 15:13] LABS: HEPATITIS A IGM NEGATIVE (NEGATIVE); HEPATITIS B CORE AB NEGATIVE (NEGATIVE)
[2018-07-06 15:23] LABS: HEPATITIS C ANTIBODY NEGATIVE (NEGATIVE)
[2018-07-07] MEDS: Sodium Chloride 0.9% 1,000 ML IV SCH ×4 (02:02→19:20)
[2018-07-07] MEDS: metroNIDAZOLE IV 500 mg/100 ml 500 MG/100 ML BAG IVPB SCH ×2 (05:58→13:50)
[2018-07-07] MEDS: cefTRIAXone IV 1 gm in Dextros 50 ML IVPB SCH (09:50)
[2018-07-07] MEDS ORDERED: Influenza Vaccine 60 MCG/0.5 ML SYR (3 yr & up) IM ONE (10:00)
--- NOTE | 2018-07-07 11:27 | CP.PCM.PN ---
Subjective - Date & Time of Evaluation Date of Evaluation: 07/07/18 Time of Evaluation: 11:25 - Subjective Subjective: feels well, denies abdominal pain MRCP not done No labs today, but liver chemistries trended down yesterday, will repeat stat Objective - Vital Signs/Intake and Output Vital Signs (last 24 hours): Temp Pulse Resp BP Pulse Ox 98.1 F 1 L 20 126/77 95 07/07/18 07:10 07/07/18 07:10 07/07/18 07:10 07/07/18 07:10 07/07/18 07:10 Intake and Output: 07/07/18 07/07/18 06:59 18:59 Intake Total 1800 Balance 1800 - Medications Medications: Current Medications Metronidazole (Flagyl) 500 mg in 100 mls @ 100 mls/hr IVPB Q8H [facility]; Protocol Last Admin: 07/07/18 05:58 Dose: 100 mls/hr Ceftriaxone Sodium (Rocephin Iv 1 Gm Duplex) 50 mls @ 100 mls/hr IVPB DAILY [facility]; Protocol Last Admin: 07/07/18 09:50 Dose: 100 mls/hr Sodium Chloride (Sodium Chloride 0.9%) 1,000 mls @ 200 mls/hr IV .Q5H [facility] Last Admin: 07/07/18 09:50 Dose: 200 mls/hr Ketorolac Tromethamine (Toradol) 15 mg IVP Q6 [facility] Last Admin: 07/07/18 05:59 Dose: 15 mg Ondansetron HCl (Zofran Inj) 4 mg IVP Q6H PRN PRN Reason: Nausea/Vomiting Last Admin: 07/06/18 06:50 Dose: 4 mg Pantoprazole Sodium (Protonix Inj) 40 mg IVP DAILY [facility] Last Admin: 07/07/18 09:51 Dose: 40 mg - Labs Labs: 07/06/18 14:09 07/06/18 14:09 PT 11.6 SECONDS (9.7-12.2) 07/05/18 20:56 INR 1.1 07/05/18 20:56 APTT 32 SECONDS (21-34) 07/05/18 20:56 - Constitutional Appears: No Acute Distress - Head Exam Head Exam: ATRAUMATIC, NORMOCEPHALIC - Cardiovascular Exam Cardiovascular Exam: REGULAR RHYTHM - GI/Abdominal Exam GI & Abdominal Exam: Soft, Normal Bowel Sounds. absent: Distended, Tenderness Assessment and Plan (1) Elevated liver enzymes Assessment & Plan: monitor Status: Acute (2) Pancreatitis Assessment & Plan: aggressive hydration Status: Acute
[2018-07-07 11:48] LABS: BASO # 0.2 K/uL (0.0-0.2); BASO % 1.3 % (0.0-2.0); EOS # 0.1 K/uL (0.0-0.7); EOS % 1.1 % (0.0-4.0); HEMOGLOBIN 13.5 g/dL (12.0-18.0); LYMPH # 1.5 K/uL (1.0-4.3); LYMPH % 12.8 % (20.0-40.0); MEAN CELL VOLUME 88.5 fL (80.0-94.0); MEAN CORPUSCULAR HEMOGLOBIN 30.6 pg (27.0-31.0); MEAN CORPUSCULAR HGB CONC 34.6 g/dL (33.0-37.0); MEAN PLATELET VOLUME 7.9 fL (7.2-11.7); MONO # 1.3 K/uL (0.0-0.8); MONO % 10.8 % (0.0-10.0); NEUT # 8.7 K/uL (1.8-7.0); RBC 4.4 Mil/uL (4.40-5.90); RED CELL DISTRIBUTION WIDTH 13.8 % (11.5-14.5); WHITE BLOOD COUNT 11.8 K/uL (4.8-10.8)
--- NOTE | 2018-07-07 13:13 | CP.PCM.PN ---
<Ana Rosa Choi - Last Filed: 07/07/18 13:09> Subjective - Date & Time of Evaluation Date of Evaluation: 07/07/18 Time of Evaluation: 13:09 - Subjective Subjective: Dr. Cortez Marquez's service - Medicine Used smt machine operator Mary Alice Olvera ([facility] student nurse) before MRCP attempt today at 9:30am and smt machine operator Isidro ID [id number] at 1pm after MRCP refusal. Patient seen and examined at bedside this morning. He denies chest pain, shortness of breath, nausea, vomiting, headache. Patient states abdominal pain has greatly improved. He said he was scared when he went to MRCP yesterday. Objective - Vital Signs/Intake and Output Vital Signs (last 24 hours): Temp Pulse Resp BP Pulse Ox 98.1 F 1 L 20 126/77 95 07/07/18 07:10 07/07/18 07:10 07/07/18 07:10 07/07/18 07:10 07/07/18 07:10 Intake and Output: 07/07/18 07/07/18 06:59 18:59 Intake Total 1800 Balance 1800 - Medications Medications: Current Medications Metronidazole (Flagyl) 500 mg in 100 mls @ 100 mls/hr IVPB Q8H [facility]; Protocol Last Admin: 07/07/18 05:58 Dose: 100 mls/hr Ceftriaxone Sodium (Rocephin Iv 1 Gm Duplex) 50 mls @ 100 mls/hr IVPB DAILY [facility]; Protocol Last Admin: 07/07/18 09:50 Dose: 100 mls/hr Sodium Chloride (Sodium Chloride 0.9%) 1,000 mls @ 200 mls/hr IV .Q5H [facility] Last Admin: 07/07/18 09:50 Dose: 200 mls/hr Ketorolac Tromethamine (Toradol) 15 mg IVP Q6 [facility] Last Admin: 07/07/18 05:59 Dose: 15 mg Ondansetron HCl (Zofran Inj) 4 mg IVP Q6H PRN PRN Reason: Nausea/Vomiting Last Admin: 07/06/18 06:50 Dose: 4 mg Pantoprazole Sodium (Protonix Inj) 40 mg IVP DAILY [facility] Last Admin: 07/07/18 09:51 Dose: 40 mg - Labs Labs: 11/14/18 11:44 07/06/18 14:09 PT 11.6 SECONDS (9.7-12.2) 07/05/18 20:56 INR 1.1 07/05/18 20:56 APTT 32 SECONDS (21-34) 07/05/18 20:56 - Head Exam Head Exam: ATRAUMATIC, NORMAL INSPECTION - Eye Exam Eye Exam: EOMI, Normal appearance - Neck Exam Neck Exam: Normal Inspection - Respiratory Exam Respiratory Exam: Clear to Ausculation Bilateral, NORMAL BREATHING PATTERN. absent: Rales, Rhonchi, Wheezes, Stridor - Cardiovascular Exam Cardiovascular Exam: REGULAR RHYTHM. absent: Diastolic murmur, Irregular Rhythm, Murmur - GI/Abdominal Exam GI & Abdominal Exam: Soft, Normal Bowel Sounds. absent: Distended, Firm, Guarding, Rigid, Rebound - Extremities Exam Extremities Exam: Normal Capillary Refill, Normal Inspection. absent: Tenderness - Neurological Exam Neurological Exam: Alert, Awake, Oriented x3 - Psychiatric Exam Psychiatric exam: Normal Affect, Normal Mood - Skin Skin Exam: Dry, Intact, Normal Color, Warm Assessment and Plan - Assessment and Plan (Free Text) Assessment: 42 year old male with no PMHx presents to ED complaining of burning RUQ abdominal pain, nausea, and vomiting. Admitted for possible gallstone pancreatitis. [place] [id number] 07/06, and next morning repeat lipase 07/07 at 379. Other labs trending overnight: TBili 5.6->1.9 AST 442 ->152 ALT 675 -> 411 AP 196 -> 154 -MRCP w/ contrast ordered per request of Dr. Turner, GI. However, patient refused due to anxiety 07/06 and 07/07, despite multiple explanations of risks of not being able to find out whether or not he has a pancreatic mass. Explained at length in Croatian with Mary Alice Almeida and smt machine operator Isidro (their info on top of the note). -begin advancement of diet - clear liquids for tonight -Ceftriaxone 1g IV daily (started 07/06 at 8:59am) -Flagyl 500mg IV Q8H (started in the ED x 1 on 07/05 at 21:20, then continued inpatient 07/06) -Zofran 4mg Q6H PRN -pending Stool ova and parasites Transaminitis -On admission: AST: 442, ALT: 675, Alk Phos: 196. Decreased consistently. TBili 5.6->1.9 AST 442 ->152 ALT 675 -> 411 AP 196 -> 154 Not consistent pattern w/ EtOH liver disease and patient denies EtOH. Likely 2/2 gallstone pancreatitis (admission TBili 5.6), but will need MRCP to confirm. However, patient refused despite risks explained. Patient likely passed a gallstone due to the decrease of LFTs, however, cannot rule out a pancreatic mass as MRCP has been refused. -hepatitis panel negative -CMP qAM, trend LFTs GERD/Hiatal hernia -Per CT abd/pelvis, patient w/ hiatal hernia, which is consistent with his complaint of acid reflux -He will need to be d/josé with PPI and f/u with primary care. If not resolved, possible elective surgery -educate on hiatal hernia and lifestyle improvements (avoid acidic food, do not eat too close to bed time, etc) -Inpatient, pt to have protonix 40 mg IV daily, then discharged with PO PPI Ppx DVT: SCDs GI: protonix 40mg IV daily Diet: CLD dispo: Patient to have clear liquid diet tonight. If he can tolerate it, d/c home tomorrow AM, 07/07. Case d/w Dr. Venita Choi, DO PGY1 <Michael Marquez - Last Filed: 07/07/18 20:42> Objective - Vital Signs/Intake and Output Vital Signs (last 24 hours): Temp Pulse Resp BP Pulse Ox 98.3 F 80 20 125/79 95 07/07/18 16:00 07/07/18 16:00 07/07/18 16:00 07/07/18 16:00 07/07/18 16:00 Intake and Output: 07/07/18 07/08/18 18:59 06:59 Intake Total 1600 Balance 1600 - Medications Medications: Current Medications Sodium Chloride (Sodium Chloride 0.9%) 1,000 mls @ 200 mls/hr IV .Q5H [facility] Last Admin: 07/07/18 09:50 Dose: 200 mls/hr Ketorolac Tromethamine (Toradol) 15 mg IVP Q6 [facility] Last Admin: 07/07/18 17:31 Dose: 15 mg Ondansetron HCl (Zofran Inj) 4 mg IVP Q6H PRN PRN Reason: Nausea/Vomiting Last Admin: 07/06/18 06:50 Dose: 4 mg Pantoprazole Sodium (Protonix Inj) 40 mg IVP DAILY [facility] Last Admin: 07/07/18 09:51 Dose: 40 mg - Labs Labs: 07/07/18 11:44 07/07/18 11:44 PT 11.6 SECONDS (9.7-12.2) 07/05/18 20:56 INR 1.1 07/05/18 20:56 APTT 32 SECONDS (21-34) 07/05/18 20:56 Attending/Attestation - Attestation I have personally seen and examined this patient.: Yes I have fully participated in the care of the patient.: Yes Notes (Text): 07/07/18 20:39 Patient was seen and examined with resident Dr. Choi and Ambulance Paramedic as mentioned above. Extensive conversation with patient concerning the need for MRCP and provided with Atarax before attempt #2. However was notified later in the day by Nurse Venus that patient refused to go down for MRCP when transport came to pick him up. Dr. Choi again explained to patient via use of online smt machine operator device of the importance of performing MRCP, however patient (understanding the risks) declined. Clear liquid diet started and if he tolerates this, then he should be discharge on 07/08/18 and instructed to advance his diet slowly and as tolerated. Michael Marquez D.O.
[2018-07-07 15:26] LABS: ALB/GLOB RATIO 1.1 (1.0-2.1); ALBUMIN 3.1 g/dL (3.5-5.0); ALT/SGPT 245 U/L (21-72); AST/SGOT 58 U/L (17-59); BLOOD UREA NITROGEN 16 mg/dL (9-20); GFR NON-AFRICAN AMERICAN > 60
[2018-07-08] MEDS: Sodium Chloride 0.9% 1,000 ML IV SCH ×2 (00:57→06:57)
[2018-07-08 07:46] VITALS: BP 139/91; PULSE 77; RESP 18; TEMP 98.3; O2SAT 98
[2018-07-08 08:07] LABS: BASO % 0.3 % (0.0-2.0); EOS # 0.2 K/uL (0.0-0.7); EOS % 1.8 % (0.0-4.0); HEMOGLOBIN 14.4 g/dL (12.0-18.0); LYMPH # 1.5 K/uL (1.0-4.3); MEAN CELL VOLUME 89.6 fL (80.0-94.0); MEAN CORPUSCULAR HEMOGLOBIN 30.8 pg (27.0-31.0); MEAN CORPUSCULAR HGB CONC 34.3 g/dL (33.0-37.0); MEAN PLATELET VOLUME 9.9 fL (7.2-11.7); MONO # 1.3 K/uL (0.0-0.8); MONO % 10.6 % (0.0-10.0); NEUT # 8.9 K/uL (1.8-7.0); NEUT % 74.3 % (50.0-75.0); RBC 4.69 Mil/uL (4.40-5.90); RED CELL DISTRIBUTION WIDTH 13.8 % (11.5-14.5); WHITE BLOOD COUNT 11.9 K/uL (4.8-10.8)
[2018-07-08 08:33] LABS: ALB/GLOB RATIO 1.2 (1.0-2.1); ALBUMIN 3.6 g/dL (3.5-5.0); ALT/SGPT 180 U/L (21-72); AST/SGOT 37 U/L (17-59); BLOOD UREA NITROGEN 10 mg/dL (9-20); CALCIUM 8.2 mg/dl (8.6-10.4); GFR NON-AFRICAN AMERICAN > 60; LIPASE 146 U/L (23-300)
[2018-07-08] MEDS ORDERED: Potassium Chloride 20 mEq ER Tab PO ONE (09:20)
--- NOTE | 2018-07-08 09:30 | CP.PCM.DIS ---
Provider - Provider Date of Admission: 07/05/18 23:35 Attending physician: Alber Guzman MD Primary care physician: none Consults: GI: Daniela Time Spent in preparation of Discharge (in minutes): 45 Hospital Course - Lab Results Lab Results: Most Recent Lab Values WBC 11.9 K/uL (4.8-10.8) H 07/08/18 07:57 RBC 4.69 Mil/uL (4.40-5.90) 07/08/18 07:57 Hgb 14.4 g/dL (12.0-18.0) 07/08/18 07:57 Hct 42.1 % (35.0-51.0) 07/08/18 07:57 MCV 89.6 fL (80.0-94.0) 07/08/18 07:57 MCH 30.8 pg (27.0-31.0) 07/08/18 07:57 MCHC 34.3 g/dL (33.0-37.0) 07/08/18 07:57 RDW 13.8 % (11.5-14.5) 07/08/18 07:57 Plt Count 186 K/uL (130-400) 07/08/18 07:57 MPV 9.9 fL (7.2-11.7) 07/08/18 07:57 Neut % (Auto) 74.3 % (50.0-75.0) 07/08/18 07:57 Lymph % (Auto) 13.0 % (20.0-40.0) L 07/08/18 07:57 Beckham % (Auto) 10.6 % (0.0-10.0) H 07/08/18 07:57 Eos % (Auto) 1.8 % (0.0-4.0) 07/08/18 07:57 Baso % (Auto) 0.3 % (0.0-2.0) 07/08/18 07:57 Neut # (Auto) 8.9 K/uL (1.8-7.0) H 07/08/18 07:57 Lymph # (Auto) 1.5 K/uL (1.0-4.3) 07/08/18 07:57 Beckham # (Auto) 1.3 K/uL (0.0-0.8) H 07/08/18 07:57 Eos # (Auto) 0.2 K/uL (0.0-0.7) 07/08/18 07:57 Baso # (Auto) 0.0 K/uL (0.0-0.2) 07/08/18 07:57 Neutrophils % (Manual) 76 % (50-75) H 07/05/18 20:56 Band Neutrophils % 1 % (0-2) 07/05/18 20:56 Lymphocytes % (Manual) 13 % (20-40) L 07/05/18 20:56 Reactive Lymphs % 1 % (0-0) H 07/05/18 20:56 Monocytes % (Manual) 9 % (0-10) 07/05/18 20:56 Platelet Estimate Normal (NORMAL) 07/05/18 20:56 Plt Clumps, EDTA Present 07/05/18 20:56 RBC Morphology Normal 07/05/18 20:56 PT 11.6 SECONDS (9.7-12.2) 07/05/18 20:56 INR 1.1 07/05/18 20:56 APTT 32 SECONDS (21-34) 07/05/18 20:56 Sodium 137 mmol/L (132-148) 07/08/18 07:57 Potassium 3.5 mmol/L (3.6-5.2) L 07/08/18 07:57 Chloride 105 mmol/L (98-107) 07/08/18 07:57 Carbon Dioxide 21 mmol/L (22-30) L 07/08/18 07:57 Anion Gap 14 (10-20) 07/08/18 07:57 BUN 10 mg/dL (9-20) 07/08/18 07:57 Creatinine 0.8 mg/dL (0.8-1.5) 07/08/18 07:57 Est GFR ( Amer) > 60 07/08/18 07:57 Est GFR (Non-Af Amer) > 60 07/08/18 07:57 Random Glucose 71 mg/dL (75-110) L 07/08/18 07:57 Calcium 8.2 mg/dl (8.6-10.4) L 07/08/18 07:57 Total Bilirubin 0.9 mg/dL (0.2-1.3) 07/08/18 07:57 AST 37 U/L (17-59) 07/08/18 07:57 ALT 180 U/L (21-72) H D 07/08/18 07:57 Alkaline Phosphatase 157 U/L (38-126) H D 07/08/18 07:57 Total Protein 6.5 g/dL (6.3-8.3) 07/08/18 07:57 Albumin 3.6 g/dL (3.5-5.0) 07/08/18 07:57 Globulin 2.9 gm/dL (2.2-3.9) 07/08/18 07:57 Albumin/Globulin Ratio 1.2 (1.0-2.1) 07/08/18 07:57 Triglycerides 95 mg/dL (0-149) 07/06/18 14:09 Cholesterol 180 mg/dL (0-199) 07/06/18 14:09 LDL Cholesterol Direct 89 mg/dL (0-129) 07/06/18 14:09 HDL Cholesterol 54 mg/dL (30-70) 07/06/18 14:09 Lipase 146 U/L (23-300) 07/08/18 07:57 Urine Color Malu (YELLOW) 07/05/18 21:10 Urine Clarity Hazy (Clear) 07/05/18 21:10 Urine pH 5.0 (5.0-8.0) 07/05/18 21:10 Ur Specific Eliot 1.019 (1.003-1.030) 07/05/18 21:10 Urine Protein 1+ mg/dL (NEGATIVE) H 07/05/18 21:10 Urine Glucose (UA) Normal mg/dL (Normal) 07/05/18 21:10 Urine Ketones Negative mg/dL (NEGATIVE) 07/05/18 21:10 Urine Blood Negative (NEGATIVE) 07/05/18 21:10 Urine Nitrate Negative (NEGATIVE) 07/05/18 21:10 Urine Bilirubin 2+ (NEGATIVE) H 07/05/18 21:10 Urine Urobilinogen 4.0 mg/dL (0.2-1.0) 07/05/18 21:10 Ur Leukocyte Esterase Neg Jeronimo/uL (Negative) 07/05/18 21:10 Urine WBC (Auto) 1 /hpf (0-5) 07/05/18 21:10 Urine RBC (Auto) 1 /hpf (0-3) 07/05/18 21:10 Ur Squamous Epith Cells 1 /hpf (0-5) 07/05/18 21:10 Urine Bacteria Rare (<OCC) 07/05/18 21:10 Hepatitis A IgM Ab Negative (NEGATIVE) 07/06/18 14:09 Hep Bs Antigen Negative (NEGATIVE) 07/06/18 14:09 Hep B Core IgM Ab Negative (NEGATIVE) 07/06/18 14:09 Hepatitis C Antibody Negative (NEGATIVE) 07/06/18 14:09 - Hospital Course Hospital Course: On admission - date of admission 07/05: 42 year old male with no PMH presents to ED c/o stabbing RUQ abdominal and right flank pain that began gradually 2 nights ago and severely worsened yesterday mornings. Pain worsens with lying down and improves after vomiting. Patient states he has had n/v at bedtime and after eating "for years" but now n/v persistent since yesterday. States he has not been able to tolerate PO intake in the last day. Patient also reports dark urine, which he experiences previously when he was living in [place] and improved after taking abx. Patient also reports intermittent diarrhea. Denies f/c, diaphoresis, melena, hematochezia, hematemesis, wt loss, dysuria, hematuria, urinary freq, chest pain, palpitations, shortness of breath and cough. On discharge - date of discharge 07/08: Patient was admitted for acute pancreatitis. He was treated with bowel rest (NPO) and IV fluids. Patient's pain was controlled overnight; he states pain was >10/10 and decreased to 4/10 overnight. He also reported being hungry after his first overnight stay. However, patient was kept NPO on hospital day 1 as GI consult wanted him to have an MRCP due to a possibility that he has a gallstone obstructing his pancreas causing the pancreatitis. The medicine team told the patient that the repeat labs after the first night showed a significant decrease of liver enzymes, lipase and total bilirubin suggesting a passing of a stone, but a mass or cancer as a cause of pancreatitis cannot be ruled out. That is why he needs MRCP as was explained to him, which he refused twice during hospital day 1 due to his anxiety during the procedure. The second time he was brought to radiology, he was given 25 mg Atarax and was asked to do it to rule out mass or cancer and that his life depended on ruling out a mass or cancer. However, despite the convincing and the medications, patient refused MRCP for the second time. After patient returned to his room from his second failed attempt of MRCP, the medicine team explained with warp knitter helper for the third time that we will not be able to confirm the cause of the pancreatitis unless he consents to MRCP. Despite explaining at length in German for the third time, he refused MRCP. He was then started on a clear liquid diet. The next day, patient and RN both report he has not had nausea or vomiting during last night's dinner and the morning breakfast. Therefore, he was discharged later in the afternoon. *above is just a summary of hospital events. Please see full medical record for details. Patient instructions: -Have a clear liquid diet at home until Sunday 07/08 dinner. Then you can have soft diet until Monday 07/09 dinner. Then advance to a normal diet. If you have any nausea or vomiting, do not advance your diet. -Please take omeprazole 20 mg daily 30 mins before breakfast for acid reflux. -Please see a primary care physician within 7 days of hospital discharge. [facility] - Floor B call to schedule appointment at [phone] Address (same as hospital) [address] [place] [address] Please return to the nearest emergency room for any increased abdominal pain, nausea, vomiting, fever, chills. *Patient agrees to the above - Date & Time of H&P Date of H&P: 07/08/18 Time of H&P: 09:30 Discharge Exam - Head Exam Head Exam: ATRAUMATIC, NORMAL INSPECTION - Eye Exam Eye Exam: EOMI, Normal appearance - Neck Exam Neck exam: Normal Inspection - Respiratory Exam Respiratory Exam: Clear to PA & Lateral, NORMAL BREATHING PATTERN, UNREMARKABLE - Cardiovascular Exam Cardiovascular Exam: REGULAR RHYTHM - GI/Abdominal Exam GI & Abdominal Exam: Normal Bowel Sounds, Unremarkable - Extremities Exam Extremities exam: normal capillary refill, normal inspection - Neurological Exam Neurological exam: Alert, Oriented x3 - Psychiatric Exam Psychiatric exam: Normal Affect, Normal Mood - Skin Skin Exam: Dry, Intact, Normal Color, Warm Discharge Plan - Discharge Medications Prescriptions: RX: Omeprazole 20 mg PO DAILY #30 tab. - Follow Up Plan Condition: FAIR Disposition: HOME/ ROUTINE Instructions: Soft Diet, Clear Liquid Diet, Pancreatitis (DC), Omeprazole Additional Instructions: Patient instructions: Patient is to be discharged home -Have a clear liquid diet at home until Sunday 07/08 dinner. Then you can have soft diet until Monday 07/09 dinner. Then advance to a normal diet. If you have any nausea or vomiting, do not advance your diet. -Please take omeprazole 20 mg daily 30 mins before breakfast for acid reflux. -Please see a primary care physician within 7 days of hospital discharge. [facility] - Floor B call to schedule appointment at [phone] Address (same as hospital) [address] [place] [address] Please return to the nearest emergency room for any increased abdominal pain, nausea, vomiting, fever, chills. *Patient agrees to the above Referrals: [facility] [Outside]
--- NOTE | 2018-07-08 10:36 | CP.PCM.PN ---
Subjective - Date & Time of Evaluation Date of Evaluation: 07/08/18 Time of Evaluation: 07:45 - Subjective Subjective: f/u pancreatitis. Feels better. Denies CP, SOB, fever, JEFFRIES, cough, RB, melena,SZ, Objective - Vital Signs/Intake and Output Vital Signs (last 24 hours): Temp Pulse Resp BP Pulse Ox 98.3 F 77 18 139/91 H 98 07/08/18 07:44 07/08/18 07:44 07/08/18 07:44 07/08/18 07:44 07/08/18 07:44 Intake and Output: 07/08/18 07/08/18 06:59 18:59 Intake Total 1600 Balance 1600 - Medications Medications: Current Medications Sodium Chloride (Sodium Chloride 0.9%) 1,000 mls @ 200 mls/hr IV .Q5H [facility] Last Admin: 07/08/18 06:57 Dose: 200 mls/hr Ketorolac Tromethamine (Toradol) 15 mg IVP Q6 [facility] Last Admin: 07/08/18 06:58 Dose: Not Given Ondansetron HCl (Zofran Inj) 4 mg IVP Q6H PRN PRN Reason: Nausea/Vomiting Last Admin: 07/06/18 06:50 Dose: 4 mg Pantoprazole Sodium (Protonix Inj) 40 mg IVP DAILY [facility] Last Admin: 07/08/18 09:19 Dose: 40 mg - Labs Labs: 07/08/18 07:57 07/08/18 07:57 PT 11.6 SECONDS (9.7-12.2) 07/05/18 20:56 INR 1.1 07/05/18 20:56 APTT 32 SECONDS (21-34) 07/05/18 20:56 - Constitutional Appears: Well - Neck Exam Neck Exam: absent: Tenderness - Respiratory Exam Respiratory Exam: Clear to Ausculation Bilateral - Cardiovascular Exam Cardiovascular Exam: REGULAR RHYTHM, RRR - GI/Abdominal Exam GI & Abdominal Exam: Soft, Normal Bowel Sounds. absent: Tenderness - Extremities Exam Extremities Exam: absent: Pedal Edema - Neurological Exam Neurological Exam: Alert, Awake, Oriented x3 Assessment and Plan (1) Abdominal pain Assessment & Plan: pancreatitis- improving Status: Acute (2) Elevated liver enzymes Assessment & Plan: Improving. Consider stone or passed stone. Check MRCP Status: Acute (3) Jaundice Status: Acute (4) Pancreatitis Status: Acute
== END 2018-07-08 15:44 | disposition home or self-care (01) | DRG 439 ==
LOC: C.ER 20:09 → C.5S 23:35
PROVIDERS: ADMIT Internal Medicine; ATTEND Internal Medicine
DX: K85.10 Biliary acute pancreatitis without necrosis or infection (principal); R17 Unspecified jaundice; K44.9 Diaphragmatic hernia without obstruction or gangrene; K29.80 Duodenitis without bleeding; K21.9 Gastro-esophageal reflux disease without esophagitis; Z79.899 Other long term (current) drug therapy; F17.210 Nicotine dependence, cigarettes, uncomplicated

== ENCOUNTER 2018-07-16 07:29 | Inpatient (IN) | payer MEDICAID, SELFPAY ==
--- NOTE | 2018-07-16 07:50 | C.PDOC ---
History Of Present Illness 42 year old male presents to the ED for evaluation of recurrent abdominal pain and vomiting since last night. States pain is similar to prior pain from recent admission. Patient was discharged on 07/08 status post acute prancreatitis. Per old records, patient refused multiple times to have MRCP for evaluation concern for mass despite multiple conversations with various providers. Denies fever. Reports last vomit episode was last night but still complains of persistent pain. No GI bleed. RECUR ABD PAIN, VOMITING SINCE LAST NIGHT. PS PAIN SIM TO PRIOR PAIN FROM RECENT ADMISSION. DC 07/08 SP ACUTE PANCREATITIS. PER OLD RECORDS, PT REFUSED MULTIPLE TIMES TO HAVE MRCP FOR EVAL CONCERN FOR MASS DESPITE MULTIPLE CONVERSATIONS W VARIOUS PROVIDERS. NO FEVER. LAST VOMIT LAST NIGHT, STILL CO PERSIST PAIN. NO GI BLEED EXAM MILD DIST NONTOXIC HEENT ANICTERIC MMM ABD +EPIG TEND SOFT NO RG REMAINDER NEG On discharge - date of discharge 07/08: Patient was admitted for acute pancreatitis. He was treated with bowel rest (NPO) and IV fluids. Patient's pain was controlled overnight; he states pain was >10/10 and decreased to 4/10 overnight. He also reported being hungry after his first overnight stay. However, patient was kept NPO on hospital day 1 as GI consult wanted him to have an MRCP due to a possibility that he has a gallstone obstructing his pancreas causing the pancreatitis. The medicine team told the patient that the repeat labs after the first night showed a significant decrease of liver enzymes, lipase and total bilirubin suggesting a passing of a stone, but a mass or cancer as a cause of pancreatitis cannot be ruled out. That is why he needs MRCP as was explained to him, which he refused twice during hospital day 1 due to his anxiety during the procedure. The second time he was brought to radiology, he was given 25 mg Atarax and was asked to do it to rule out mass or cancer and that his life depended on ruling out a mass or cancer. However, despite the convincing and the medications, patient refused MRCP for the second time. After patient returned to his room from his second failed attempt of MRCP, the medicine team explained with school physical therapist for the third time that we will not be able to confirm the cause of the pancreatitis unless he consents to MRCP. Despite explaining at length in Turkish for the third time, he refused MRCP. He was then started on a clear liquid diet. The next day, patient and RN both report he has not had nausea or vomiting during last night's dinner and the morning breakfast. Therefore, he was discharged later in the afternoon. Time Seen by Provider: 07/16/18 07:49 History Per: Patient History/Exam Limitations: no limitations Onset/Duration Of Symptoms: Hrs Current Symptoms Are (Timing): Still Present Location Of Pain/Discomfort: Diffuse Associated Symptoms: Vomiting. denies: Fever, Chills Past Medical History Reviewed: Historical Data, Nursing Documentation, Vital Signs Vital Signs: Last Vital Signs Temp 98.1 F 07/16/18 07:40 Pulse 85 07/16/18 07:40 Resp 18 07/16/18 07:40 BP 147/95 H 07/16/18 07:40 Pulse Ox 97 07/16/18 07:40 - Medical History PMH: Pancreatitis Denies: Chronic Kidney Disease Surgical History: No Surg Hx Family History: States: No Known Family Hx - Social History Hx Alcohol Use: No Hx Substance Use: No - Immunization History Hx Tetanus Toxoid Vaccination: No Hx Influenza Vaccination: No Hx Pneumococcal Vaccination: No Review Of Systems Except As Marked, All Systems Reviewed And Found Negative. Constitutional: Negative for: Fever, Chills Gastrointestinal: Positive for: Vomiting, Abdominal Pain. Negative for: Diarrhea Genitourinary: Negative for: Dysuria, Hematuria Physical Exam - Physical Exam Appears: Non-toxic, Other (mild distress) Skin: Warm, Dry, No Rash Head: Normacephalic Eye(s): bilateral: Normal Inspection, Other (anicteric ) Nose: Normal Oral Mucosa: Moist Neck: Normal ROM, Supple Chest: Symmetrical Cardiovascular: Rhythm Regular Respiratory: No Rales, No Rhonchi, No Wheezing Gastrointestinal/Abdominal: Soft, Tenderness (epigastric tenderness ), No Guarding, No Rebound Back: No CVA Tenderness Extremity: Bilateral: Atraumatic, Normal Color And Temperature, Normal ROM Neurological/Psych: Oriented x3, Normal Speech Gait: Steady ED Course And Treatment - Laboratory Results Result Diagrams: 07/16/18 08:45 07/16/18 08:45 O2 Sat by Pulse Oximetry: 97 (RA) Pulse Ox Interpretation: Normal - CT Scan/US US abd Other Rad Studies (CT/US): Read By Radiologist, Radiology Report Reviewed CT/US Interpretation: IMPRESSION: Probable fatty hepatic infiltration however other infiltrative hepatocellular disease process not excluded. Cholelithiasis with intraluminal gallbladder sludge. Limited evaluation of the pancreas due to body habitus and bowel gas. Progress - Re-Evaluation Re-evaluation Note: 07/16/18 10:32 EXAM UNCH INITIAL VSS APPEARS COMFORTABLE. D/W DR POLK AWARE OF ER FINDINGS WILL ADMIT. - Data Reviewed Data Reviewed: Lab, Diagnostic imaging, Old records - Critical Care Citical Care: Excluding Proc Time Critical Care Time: 30 minutes Medical Decision Making Medical Decision Making: Plan - Bloodwork - Morphine 4mg IVP - Zofran 4mg IVP - IV fluids Disposition Counseled Patient/Family Regarding: Studies Performed, Diagnosis - Disposition Disposition: HOSPITALIZED Disposition Time: 10:36 Condition: SERIOUS - POA Present On Arrival: None - Clinical Impression Clinical Impression: Acute pancreatitis - Scribe Statement The provider has reviewed the documentation as recorded by the Scribe Marleni Castillo All medical record entries made by the Joshuaibe were at my direction and personally dictated by me. I have reviewed the chart and agree that the record accurately reflects my personal performance of the history, physical exam, medical decision making, and the department course for this patient. I have also personally directed, reviewed, and agree with the discharge instructions and disposition.
[2018-07-16 08:26] LABS: SQUAMOUS EPITHIAL < 1 /hpf (0-5); URINE BACTERIA RARE (<OCC); URINE BILIRUBIN NEGATIVE (NEGATIVE); URINE BLOOD NEGATIVE (NEGATIVE); URINE CLARITY Clear (Clear); URINE COLOR Amber (YELLOW); URINE GLUCOSE (UA) NORMAL (Normal); URINE LEUKOCYTE ESTERASE NEG Leu/uL (Negative); URINE PROTEIN NEGATIVE (NEGATIVE)
[2018-07-16] MEDS ORDERED: Morphine 4 MG/ML VIAL ONE (08:32)
[2018-07-16 08:48] LABS: BASO # 0.1 K/uL (0.0-0.2); BASO % 0.6 % (0.0-2.0); EOS # 0.1 K/uL (0.0-0.7); EOS % 0.7 % (0.0-4.0); LYMPH # 1.3 K/uL (1.0-4.3); LYMPH % 10.9 % (20.0-40.0); MEAN CELL VOLUME 87.8 fL (80.0-94.0); MEAN CORPUSCULAR HEMOGLOBIN 29.9 pg (27.0-31.0); MONO # 1.3 K/uL (0.0-0.8); MONO % 10.7 % (0.0-10.0); NEUT # 9.6 K/uL (1.8-7.0); NEUT % 77.1 % (50.0-75.0); RBC 5.55 Mil/uL (4.40-5.90); RED CELL DISTRIBUTION WIDTH 13.5 % (11.5-14.5); WHITE BLOOD COUNT 12.4 K/uL (4.8-10.8)
[2018-07-16 08:56] LABS: HEMOGLOBIN 16.6 g/dL (12.0-18.0)
[2018-07-16 09:00] LABS: VENOUS BLOOD GAS BASE EXCESS 3.8 mmol/L (0.0-2.0); VENOUS BLOOD GAS PCO2 56 mmHg (40-60); VENOUS BLOOD GAS PO2 24 mm/Hg (30-55); VENOUS BLOOD PH 7.35 (7.32-7.43)
[2018-07-16 09:15] LABS: ALB/GLOB RATIO 1.1 (1.0-2.1); ALBUMIN 4.3 g/dL (3.5-5.0); ALT/SGPT 597 U/L (21-72); AST/SGOT 584 U/L (17-59); BLOOD UREA NITROGEN 14 mg/dL (9-20); CALCIUM 9.5 mg/dl (8.6-10.4); GFR NON-AFRICAN AMERICAN > 60
[2018-07-16 10:15] LABS: LIPASE 22481 U/L (23-300)
--- NOTE | 2018-07-16 11:59 | US ---
Date of service: 07/16/2018 HISTORY: Abdominal pain; rule out acute anna COMPARISON: Comparison made with prior abdominal ultrasound 07/06/2020. TECHNIQUE: Sonographic evaluation of the right upper quadrant of the abdomen. FINDINGS: LIVER: Measures 16.6 cm in length. Smooth contour however increased echotexture suggesting fatty infiltration although other infiltrative hepatocellular disease process not excluded.. No mass. No intrahepatic bile duct dilatation. GALLBLADDER: Cholelithiasis and intraluminal gallbladder sludge.. No definitive evidence of pericholecystic fluid collections or sonographic Whittington sign. COMMON BILE DUCT: Measures 4.2 mm. No stones. No dilatation. PANCREAS: Pancreas poorly visualized due to body habitus and bowel gas. RIGHT KIDNEY: Measures 12.2 x 5.4 x 6.1 cm in length. Normal echogenicity. No calculus, mass, or hydronephrosis. AORTA: No aneurysmal dilatation. IVC: Unremarkable. OTHER FINDINGS: None . IMPRESSION: Probable fatty hepatic infiltration however other infiltrative hepatocellular disease process not excluded. Cholelithiasis with intraluminal gallbladder sludge. Limited evaluation of the pancreas due to body habitus and bowel gas.
[2018-07-16] MEDS: Lactated Ringer's 1,000 ML IV SCH ×2 (12:20→17:30)
[2018-07-16 12:35] LABS: INR 1.2; PROTHROMBIN TIME 12.8 SECONDS (9.7-12.2)
--- NOTE | 2018-07-16 13:15 | CP.PCM.CON ---
History of Present Illness - History of Present Illness History of Present Illness: Surgery consult for Dr. Ojeda Consulted for gallstone pancreatitis Pt is a 42M who was recently admitted for pancreatitis, likely d/t gallstones, but refused MRCP at that time and was dishcarged on 07/08. Since then he has had persistent BL abdominal pain, worse with food, associated with nausea and non- bloody vomiting, but no diarrhea. Pain got acutely worse yesterday and today so he came back to the ER. Patient denies any fevers, chills, chest pain, SOB, melena, hematochezia, or any other symptoms. Denies any family history of pancreatitis/GI complaints PMH: denies PSH: denies ALL; denies social: smokes 1PPD for 24 years, denies ETOH, denies any drugs Review of Systems - Review of Systems All systems: reviewed and no additional remarkable complaints except (as per HPI) Past Patient History - Past Medical History & Family History Past Medical History?: No Past Family History: Reviewed and not pertinent - Past Social History Smoking Status: Heavy Smoker > 10 Cigarettes Daily Alcohol: None Drugs: Denies Home Situation {Lives}: With Family - CARDIAC Hx Cardiac Disorders: No - PULMONARY Hx Respiratory Disorders: No - NEUROLOGICAL Hx Neurological Disorder: No - HEENT Hx HEENT Problems: No - RENAL Hx Chronic Kidney Disease: No - ENDOCRINE/METABOLIC Hx Endocrine Disorders: No - HEMATOLOGICAL/ONCOLOGICAL Hx Blood Disorders: No - INTEGUMENTARY Hx Dermatological Problems: No - MUSCULOSKELETAL/RHEUMATOLOGICAL Hx Musculoskeletal Disorders: No Hx Falls: No - GASTROINTESTINAL Hx Pancreatitis: Yes - GENITOURINARY/GYNECOLOGICAL Hx Genitourinary Disorders: No - PSYCHIATRIC Hx Substance Use: No - SURGICAL HISTORY Hx Surgeries: No - ANESTHESIA Hx Anesthesia: No Meds Allergies/Adverse Reactions: Allergies Allergy/AdvReac Type Severity Reaction Status Date / Time No Known Allergies Allergy Verified 07/16/18 07:49 - Medications Medications: Current Medications Lactated Ringer's (Lactated Ringer's) 1,000 mls @ 200 mls/hr IV .Q5H [facility] Last Admin: 07/16/18 12:20 Dose: 200 mls/hr Morphine Sulfate (Morphine) 2 mg IVP Q4 PRN PRN Reason: Pain, moderate (4-7) Morphine Sulfate (Morphine) 4 mg IVP Q4 PRN PRN Reason: Pain, severe (8-10) Ondansetron HCl (Zofran Inj) 4 mg IVP Q6H PRN PRN Reason: Nausea/Vomiting Physical Exam - Constitutional Appears: Well, Non-toxic, No Acute Distress - Head Exam Head Exam: ATRAUMATIC, NORMOCEPHALIC - Eye Exam Eye Exam: Normal appearance. absent: Conjunctival injection, Scleral icterus - ENT Exam ENT Exam: Mucous Membranes Moist, Normal Oropharynx - Respiratory Exam Respiratory Exam: NORMAL BREATHING PATTERN. absent: Accessory Muscle Use, Respiratory Distress - Cardiovascular Exam Cardiovascular Exam: RRR - GI/Abdominal Exam GI & Abdominal Exam: Guarding (voluntary), Soft, Tenderness (RUQ and epigastrium). absent: Distended - Extremities Exam Extremities exam: Positive for: pedal pulses present. Negative for: calf tenderness, pedal edema - Neurological Exam Neurological exam: Alert, Oriented x3 - Psychiatric Exam Psychiatric exam: Normal Affect, Normal Mood - Skin Skin Exam: Dry, Intact, Normal Color, Warm Results - Vital Signs Recent Vital Signs: Last Vital Signs Temp 98.1 F 07/16/18 07:40 Pulse 68 07/16/18 09:33 Resp 21 07/16/18 09:33 BP 125/85 07/16/18 09:33 Pulse Ox 97 07/16/18 10:37 - Labs Result Diagrams: 07/16/18 08:45 07/16/18 08:45 Labs: Laboratory Results - last 24 hr 07/16/18 07/16/18 07/16/18 08:18 08:45 08:45 WBC 12.4 H RBC 5.55 Hgb 16.6 D Hct 48.7 MCV 87.8 MCH 29.9 MCHC 34.0 RDW 13.5 Plt Count 316 D MPV 9.0 Neut % (Auto) 77.1 H Lymph % (Auto) 10.9 L [place] % (Auto) 10.7 H Eos % (Auto) 0.7 Baso % (Auto) 0.6 Neut # (Auto) 9.6 H Lymph # (Auto) 1.3 [place] # (Auto) 1.3 H Eos # (Auto) 0.1 Baso # (Auto) 0.1 PT INR APTT pO2 VBG pH VBG pCO2 VBG HCO3 VBG Total CO2 VBG O2 Sat (Calc) VBG Base Excess VBG Potassium Glucose Lactate Sodium 141 Potassium 4.8 Chloride 97 L Carbon Dioxide 31 H Anion Gap 18 BUN 14 Creatinine 1.3 Est GFR ( Amer) > 60 Est GFR (Non-Af Amer) > 60 Random Glucose 115 H Calcium 9.5 Total Bilirubin 2.7 H GGT AST 584 H D ALT 597 H D Alkaline Phosphatase 304 H D Lactate Dehydrogenase Total Protein 8.4 H Albumin 4.3 Globulin 4.0 H Albumin/Globulin Ratio 1.1 Lipase 02979 H Venous Blood Potassium Urine Color [place] Urine Clarity Clear Urine pH 5.0 Ur Specific [place] 1.008 Urine Protein Negative Urine Glucose (UA) Normal Urine Ketones Negative Urine Blood Negative Urine Nitrate Negative Urine Bilirubin Negative Urine Urobilinogen 2.0 Ur Leukocyte Esterase Neg Urine WBC (Auto) 1 Urine RBC (Auto) < 1 Ur Squamous Epith Cells < 1 Urine Bacteria Rare Acetaminophen Alcohol, Quantitative 07/16/18 07/16/18 07/16/18 08:57 12:21 12:21 WBC RBC Hgb Hct MCV MCH MCHC RDW Plt Count MPV Neut % (Auto) Lymph % (Auto) [place] % (Auto) Eos % (Auto) Baso % (Auto) Neut # (Auto) Lymph # (Auto) [place] # (Auto) Eos # (Auto) Baso # (Auto) PT 12.8 H INR 1.2 APTT 32 pO2 24 L VBG pH 7.35 VBG pCO2 56 VBG HCO3 26.3 VBG Total CO2 32.6 H VBG O2 Sat (Calc) 45.7 VBG Base Excess 3.8 H VBG Potassium 4.4 Glucose 107 Lactate 1.4 Sodium 140.0 Potassium Chloride 103.0 Carbon Dioxide Anion Gap BUN Creatinine Est GFR ( Amer) Est GFR (Non-Af Amer) Random Glucose Calcium Total Bilirubin GGT 722 H AST ALT Alkaline Phosphatase Lactate Dehydrogenase Total Protein Albumin Globulin Albumin/Globulin Ratio Lipase Venous Blood Potassium 4.4 Urine Color Urine Clarity Urine pH Ur Specific [place] Urine Protein Urine Glucose (UA) Urine Ketones Urine Blood Urine Nitrate Urine Bilirubin Urine Urobilinogen Ur Leukocyte Esterase Urine WBC (Auto) Urine RBC (Auto) Ur Squamous Epith Cells Urine Bacteria Acetaminophen Alcohol, Quantitative 07/16/18 07/16/18 12:21 12:21 WBC RBC Hgb Hct MCV MCH MCHC RDW Plt Count MPV Neut % (Auto) Lymph % (Auto) [place] % (Auto) Eos % (Auto) Baso % (Auto) Neut # (Auto) Lymph # (Auto) [place] # (Auto) Eos # (Auto) Baso # (Auto) PT INR APTT pO2 VBG pH VBG pCO2 VBG HCO3 VBG Total CO2 VBG O2 Sat (Calc) VBG Base Excess VBG Potassium Glucose Lactate Sodium Potassium Chloride Carbon Dioxide Anion Gap BUN Creatinine Est GFR ( Amer) Est GFR (Non-Af Amer) Random Glucose Calcium Total Bilirubin GGT AST ALT Alkaline Phosphatase Lactate Dehydrogenase 924 H Total Protein Albumin Globulin Albumin/Globulin Ratio Lipase Venous Blood Potassium Urine Color Urine Clarity Urine pH Ur Specific [place] Urine Protein Urine Glucose (UA) Urine Ketones Urine Blood Urine Nitrate Urine Bilirubin Urine Urobilinogen Ur Leukocyte Esterase Urine WBC (Auto) Urine RBC (Auto) Ur Squamous Epith Cells Urine Bacteria Acetaminophen < 10.0 L Alcohol, Quantitative < 10 Assessment & Plan - Assessment and Plan (Free Text) Assessment: 42M with worsened vs recurrent acute pancreatitis, possibly d/t gallstones Plan: NPO GI consult F/U MRCP aggressive IV hydration PRN pain and nausea medication Trend CBC and CMP Patient should undergo cholecystectomy this hospitalization once choledocholithiasis ruled out and patient clinically improves from pancreatitis. Further surgical planning pending results Discussed with Dr. Rusty Campbell, PGY2
--- NOTE | 2018-07-16 14:31 | CP.PCM.HP ---
<Raffi Whiting M - Last Filed: 07/16/18 18:26> History of Present Illness - History of Present Illness History of Present Illness: In demand freelance translator [id number] used for H&P H&P for Hospitalist Dr. Dunaway. 42 M w/ PMHx of pancreatitis, arrives to ED for increasing abdominal pain. Patient states pain began since he was discharged a week ago for acute pancreatitis. Initially the pain was to a minimum; however, over the past day, the pain increased in intensity that he could no longer stand the pain. Patient had 1X non bilious, non bloody vomiting yesterday, denies F/C. Patient describes the pain as episodic, 7/10 at its worse, 1/10 at its best, mid abdominal/ periumbilical, radiating to b/l back. Patient has maintained a soft diet. Patient denies chest pain, hematura, dysuria, changes in BM, headaches, vision changes. During previous hospitalization, patient denied MRCP due to anxiety. PMD: None PMHx: Pancreatitis Meds: omeprazole 20 mg daily Allergies: None PSHx: Denies Social Hx: Smokes 1 pack per day/ 18 yrs, denies ETOH, illicit drug use FHx: Mother - [place] w/ cath, Dad - healthy Present on Admission - Present on Admission Any Indicators Present on Admission: No Review of Systems - Constitutional Constitutional: absent: Fever, Weight Loss - EENT Nose/Mouth/Throat: absent: Dry Mouth, Mouth Pain - Cardiovascular Cardiovascular: absent: Chest Pain, Chest Pain with Activity - Respiratory Respiratory: absent: Dyspnea, Wheezing - Gastrointestinal Gastrointestinal: Abdominal Pain. absent: Nausea, Vomiting - Genitourinary Genitourinary: absent: Difficulty Urinating, Hematuria, Pyuria - Musculoskeletal Musculoskeletal: absent: Arthralgias, Muscle Weakness - Integumentary Integumentary: absent: Non-Healing Lesions, Skin Ulcer - Neurological Neurological: absent: Abnormal Hearing, Headaches - Psychiatric Psychiatric: absent: Anxiety, Auditory Hallucinations Past Patient History - Past Medical History & Family History Past Medical History?: No Past Family History: Reviewed and not pertinent - Past Social History Smoking Status: Heavy Smoker > 10 Cigarettes Daily Alcohol: None Drugs: Denies Home Situation {Lives}: With Family - CARDIAC Hx Cardiac Disorders: No - PULMONARY Hx Respiratory Disorders: No - NEUROLOGICAL Hx Neurological Disorder: No - HEENT Hx HEENT Problems: No - RENAL Hx Chronic Kidney Disease: No - ENDOCRINE/METABOLIC Hx Endocrine Disorders: No - HEMATOLOGICAL/ONCOLOGICAL Hx Blood Disorders: No - INTEGUMENTARY Hx Dermatological Problems: No - MUSCULOSKELETAL/RHEUMATOLOGICAL Hx Musculoskeletal Disorders: No Hx Falls: No - GASTROINTESTINAL Hx Pancreatitis: Yes - GENITOURINARY/GYNECOLOGICAL Hx Genitourinary Disorders: No - PSYCHIATRIC Hx Substance Use: No - SURGICAL HISTORY Hx Surgeries: No - ANESTHESIA Hx Anesthesia: No Meds Allergies/Adverse Reactions: Allergies Allergy/AdvReac Type Severity Reaction Status Date / Time No Known Allergies Allergy Verified 07/16/18 07:49 Physical Exam - Constitutional Appears: Non-toxic, No Acute Distress - Head Exam Head Exam: ATRAUMATIC, NORMAL INSPECTION, NORMOCEPHALIC - Eye Exam Eye Exam: EOMI, Normal appearance - ENT Exam ENT Exam: Mucous Membranes Dry - Respiratory Exam Respiratory Exam: Clear to Auscultation Bilateral, NORMAL BREATHING PATTERN. absent: Rales, Rhonchi, Wheezes - Cardiovascular Exam Cardiovascular Exam: +S1, +S2. absent: Tachycardia, Systolic Murmur - GI/Abdominal Exam GI & Abdominal Exam: Normal Bowel Sounds, Soft, Tenderness. absent: Rebound, Rigid Additional comments: Negative [place] point Equivocal martinez sign - Extremities Exam Extremities exam: Positive for: full ROM, normal inspection. Negative for: calf tenderness, pedal edema - Back Exam Back exam: absent: CVA tenderness (L), CVA tenderness (R) - Neurological Exam Neurological exam: Alert, CN II-XII Intact, Oriented x3 - Psychiatric Exam Psychiatric exam: Normal Affect, Normal Mood - Skin Skin Exam: Dry, Intact, Normal Color, Warm Results - Vital Signs Recent Vital Signs: Last Vital Signs Temp 98.1 F 07/16/18 07:40 Pulse 68 07/16/18 09:33 Resp 21 07/16/18 09:33 BP 125/85 07/16/18 09:33 Pulse Ox 97 07/16/18 10:37 - Labs Result Diagrams: 07/16/18 08:45 07/16/18 08:45 Labs: Laboratory Results - last 24 hr 07/16/18 07/16/18 07/16/18 08:18 08:45 08:45 WBC 12.4 H RBC 5.55 Hgb 16.6 D Hct 48.7 MCV 87.8 MCH 29.9 MCHC 34.0 RDW 13.5 Plt Count 316 D MPV 9.0 Neut % (Auto) 77.1 H Lymph % (Auto) 10.9 L [place] % (Auto) 10.7 H Eos % (Auto) 0.7 Baso % (Auto) 0.6 Neut # (Auto) 9.6 H Lymph # (Auto) 1.3 [place] # (Auto) 1.3 H Eos # (Auto) 0.1 Baso # (Auto) 0.1 PT INR APTT pO2 VBG pH VBG pCO2 VBG HCO3 VBG Total CO2 VBG O2 Sat (Calc) VBG Base Excess VBG Potassium Glucose Lactate Sodium 141 Potassium 4.8 Chloride 97 L Carbon Dioxide 31 H Anion Gap 18 BUN 14 Creatinine 1.3 Est GFR ( Amer) > 60 Est GFR (Non-Af Amer) > 60 Random Glucose 115 H Calcium 9.5 Total Bilirubin 2.7 H GGT AST 584 H D ALT 597 H D Alkaline Phosphatase 304 H D Lactate Dehydrogenase Total Protein 8.4 H Albumin 4.3 Globulin 4.0 H Albumin/Globulin Ratio 1.1 Lipase 93327 H Venous Blood Potassium Urine Color [place] Urine Clarity Clear Urine pH 5.0 Ur Specific [place] 1.008 Urine Protein Negative Urine Glucose (UA) Normal Urine Ketones Negative Urine Blood Negative Urine Nitrate Negative Urine Bilirubin Negative Urine Urobilinogen 2.0 Ur Leukocyte Esterase Neg Urine WBC (Auto) 1 Urine RBC (Auto) < 1 Ur Squamous Epith Cells < 1 Urine Bacteria Rare Acetaminophen Alcohol, Quantitative 07/16/18 07/16/18 07/16/18 08:57 12:21 12:21 WBC RBC Hgb Hct MCV MCH MCHC RDW Plt Count MPV Neut % (Auto) Lymph % (Auto) [place] % (Auto) Eos % (Auto) Baso % (Auto) Neut # (Auto) Lymph # (Auto) [place] # (Auto) Eos # (Auto) Baso # (Auto) PT 12.8 H INR 1.2 APTT 32 pO2 24 L VBG pH 7.35 VBG pCO2 56 VBG HCO3 26.3 VBG Total CO2 32.6 H VBG O2 Sat (Calc) 45.7 VBG Base Excess 3.8 H VBG Potassium 4.4 Glucose 107 Lactate 1.4 Sodium 140.0 Potassium Chloride 103.0 Carbon Dioxide Anion Gap BUN Creatinine Est GFR ( Amer) Est GFR (Non-Af Amer) Random Glucose Calcium Total Bilirubin GGT 722 H AST ALT Alkaline Phosphatase Lactate Dehydrogenase Total Protein Albumin Globulin Albumin/Globulin Ratio Lipase Venous Blood Potassium 4.4 Urine Color Urine Clarity Urine pH Ur Specific [place] Urine Protein Urine Glucose (UA) Urine Ketones Urine Blood Urine Nitrate Urine Bilirubin Urine Urobilinogen Ur Leukocyte Esterase Urine WBC (Auto) Urine RBC (Auto) Ur Squamous Epith Cells Urine Bacteria Acetaminophen Alcohol, Quantitative 07/16/18 07/16/18 12:21 12:21 WBC RBC Hgb Hct MCV MCH MCHC RDW Plt Count MPV Neut % (Auto) Lymph % (Auto) [place] % (Auto) Eos % (Auto) Baso % (Auto) Neut # (Auto) Lymph # (Auto) [place] # (Auto) Eos # (Auto) Baso # (Auto) PT INR APTT pO2 VBG pH VBG pCO2 VBG HCO3 VBG Total CO2 VBG O2 Sat (Calc) VBG Base Excess VBG Potassium Glucose Lactate Sodium Potassium Chloride Carbon Dioxide Anion Gap BUN Creatinine Est GFR ( Amer) Est GFR (Non-Af Amer) Random Glucose Calcium Total Bilirubin GGT AST ALT Alkaline Phosphatase Lactate Dehydrogenase 924 H Total Protein Albumin Globulin Albumin/Globulin Ratio Lipase Venous Blood Potassium Urine Color Urine Clarity Urine pH Ur Specific [place] Urine Protein Urine Glucose (UA) Urine Ketones Urine Blood Urine Nitrate Urine Bilirubin Urine Urobilinogen Ur Leukocyte Esterase Urine WBC (Auto) Urine RBC (Auto) Ur Squamous Epith Cells Urine Bacteria Acetaminophen < 10.0 L Alcohol, Quantitative < 10 Assessment & Plan - Assessment and Plan (Free Text) Assessment: 42 Y male w/ PMHx of pancreatits presents to ED w/ increasing abdominal pain, admited for acute pancreatitis: Acute Gallstone Pancreatitis - Lipase 05056, AST 584, ALT 597, Alk phos 304 - WBC 12.4, Afebrile, vitals WNL, Lactate 1.4 - R/o causes of pancreatitis including gallstone vs ETOH vs other - R/o possible cholangitis - Acetaminophen < 10, ETOH < 10 - Rocephin 1gm q24h - U/S - probably fatty heaptic infiltrate however other infiltrate hepatocellular disease process no excluded. Cholelithiasis with intralumenal gallbaddler sludge - Limited evaluation of pancreas - LR 200ml/ hr - Zofran mg IVP - NPO - F/u GI, Dr. Duvall recs - F/u general surgery, Dr. Ojeda recs - F/u EKG & CXR for baseline/ potential surgical clearance - F/u MRCP - MELD score 15, correlates w/ 6% 3- month mortality for hospitalized patient - Child Lisa Score 6, Correlates w/ Child class A - 1 year survival 100% - Ransion criteria admission: 2 points: 1% predicted mortality - Pt has minimal to no pain on examination. hold pain medications for now Prophylaxis Diet: NPO DVT: contraindicated <Maty Dunaway V - Last Filed: 07/18/18 08:59> Results - Vital Signs Recent Vital Signs: Last Vital Signs Temp 97.9 F 07/18/18 07:00 Pulse 69 07/18/18 07:00 Resp 18 07/18/18 07:00 BP 129/82 07/18/18 07:00 Pulse Ox 97 07/18/18 07:00 - Labs Result Diagrams: 07/18/18 07:53 07/18/18 07:53 Labs: Laboratory Results - last 24 hr 07/17/18 07/18/18 07/18/18 07:09 07:53 07:53 WBC 9.8 8.3 RBC 4.77 4.81 Hgb 14.4 D 14.6 Hct 42.5 42.5 MCV 89.0 88.3 MCH 30.1 30.4 MCHC 33.8 34.4 RDW 13.7 13.2 Plt Count 221 249 MPV 9.3 8.7 Neut % (Auto) 69.0 67.1 Lymph % (Auto) 19.4 L 21.0 [place] % (Auto) 8.8 7.9 Eos % (Auto) 2.2 3.4 Baso % (Auto) 0.6 0.6 Neut # (Auto) 6.7 5.6 Lymph # (Auto) 1.9 1.8 [place] # (Auto) 0.9 H 0.7 Eos # (Auto) 0.2 0.3 Baso # (Auto) 0.1 0.1 Differential Comment Sodium 138 Potassium 3.7 Chloride 100 Carbon Dioxide 26 Anion Gap 15 BUN 9 Creatinine 0.8 Est GFR ( Amer) > 60 Est GFR (Non-Af Amer) > 60 Random Glucose 114 H Calcium 9.0 Total Bilirubin 0.9 AST 63 H D ALT 261 H D Alkaline Phosphatase 288 H Total Protein 7.0 Albumin 3.6 Globulin 3.3 Albumin/Globulin Ratio 1.1 Assessment & Plan (1) Gallstone pancreatitis Status: Acute (2) Elevated liver enzymes Status: Acute (3) Prophylactic measure Status: Acute Attending/Attestation - Attestation I have personally seen and examined this patient.: Yes I have fully participated in the care of the patient.: Yes I have reviewed all pertinent clinical information: Yes Notes (Text): This is late computer entry for 07/16/18. Patient seen, examined, and case discussed with medical attendant. Agree with assessment and plan as written by the resident. Assessment/Plan 1) Gallstone Pancreatitis Assessment/Plan * GI (Dr. Duvall) on consult-->help appreciated * General surgery (Dr. Ojeda) on consult-->help appreciated * Abdominal US (07/16/18): probably fatty hepatic infiltration however other infiltrateive hepatocellular disease process not excluded. Cholelithiasis with intraluminal gallbladder sludge * Pending MRCP * Monitor liver function tests * LR 250cc/hr * f/y EKG/chest xray * Start Rocephin 1 gram IV daily 2) Transaminitis * improving see above. 3) prophylactic measure * Zofran 4mg IV Q6H PRN * SCDS b/l * protonix 40mg IV daily * ambulatory for DVT ppx
[2018-07-17] MEDS: Lactated Ringer's 1,000 ML IV SCH ×3 (00:42→18:15)
[2018-07-17 07:18] LABS: BASO # 0.1 K/uL (0.0-0.2); BASO % 0.6 % (0.0-2.0); EOS # 0.2 K/uL (0.0-0.7); EOS % 2.2 % (0.0-4.0); LYMPH # 1.9 K/uL (1.0-4.3); LYMPH % 19.4 % (20.0-40.0); MEAN CORPUSCULAR HEMOGLOBIN 30.1 pg (27.0-31.0); MEAN CORPUSCULAR HGB CONC 33.8 g/dL (33.0-37.0); MEAN PLATELET VOLUME 9.3 fL (7.2-11.7); MONO # 0.9 K/uL (0.0-0.8); MONO % 8.8 % (0.0-10.0); NEUT # 6.7 K/uL (1.8-7.0); RBC 4.77 Mil/uL (4.40-5.90); RED CELL DISTRIBUTION WIDTH 13.7 % (11.5-14.5); WHITE BLOOD COUNT 9.8 K/uL (4.8-10.8)
--- NOTE | 2018-07-17 07:19 | CP.PCM.PN ---
Subjective - Date & Time of Evaluation Date of Evaluation: 07/17/18 Time of Evaluation: 07:18 - Subjective Subjective: General Surgery progress Note for Dr. Ojeda This 42M was seen and examined this Am at bedside no acute events reported overnight. He reports that his pain is resolved and is requesting a diet. He denies any fevers chills or chest pain Objective - Vital Signs/Intake and Output Vital Signs (last 24 hours): Temp Pulse Resp BP Pulse Ox 97.8 F 60 20 121/80 96 07/16/18 23:05 07/16/18 23:05 07/16/18 23:05 07/16/18 23:05 07/16/18 23:05 Intake and Output: 07/17/18 07/17/18 06:59 18:59 Intake Total 600 Balance 600 - Medications Medications: Current Medications Ceftriaxone Sodium 1 gm/ (Sodium Chloride) 100 mls @ 100 mls/hr IVPB DAILY [facility]; Protocol Lactated Ringer's (Lactated Ringer's) 1,000 mls @ 250 mls/hr IV .Q4H [facility] Last Admin: 07/17/18 04:58 Dose: 250 mls/hr Influenza Virus Vaccine (Fluzone Quad [id number]) 60 mcg IM .ONCE ONE Stop: 07/19/18 10:01 Ondansetron HCl (Zofran Inj) 4 mg IVP Q6H PRN PRN Reason: Nausea/Vomiting Pneumococcal Polyvalent Vaccine (Pneumovax 23 Vaccine) 0.5 ml IM .ONCE ONE Stop: 07/18/18 10:01 - Labs Labs: 07/16/18 08:45 07/16/18 08:45 PT 12.8 SECONDS (9.7-12.2) H 07/16/18 12:21 INR 1.2 07/16/18 12:21 APTT 32 SECONDS (21-34) 07/16/18 12:21 - Constitutional Appears: Non-toxic, No Acute Distress - Head Exam Head Exam: ATRAUMATIC, NORMOCEPHALIC - Eye Exam Eye Exam: EOMI - ENT Exam ENT Exam: Mucous Membranes Moist - Respiratory Exam Respiratory Exam: NORMAL BREATHING PATTERN - Cardiovascular Exam Cardiovascular Exam: +S1, +S2 - GI/Abdominal Exam GI & Abdominal Exam: Soft. absent: Distended, Firm, Guarding, Rigid, Tenderness - Neurological Exam Neurological Exam: Alert, Awake - Psychiatric Exam Psychiatric exam: Normal Affect, Normal Mood - Skin Skin Exam: Dry, Intact Assessment and Plan - Assessment and Plan (Free Text) Assessment: 42M with Gallstone pancreatitis Following MRCP recommend Clear liquids F/U MRCP aggressive IV hydration PRN pain and nausea medication Trend CBC and CMP Cholecystectomy prior to discharge Further recs per Dr. Rusty Bryan PGY3
[2018-07-17 07:38] LABS: HEMOGLOBIN 14.4 g/dL (12.0-18.0)
[2018-07-17 08:17] LABS: ALB/GLOB RATIO 1.1 (1.0-2.1); ALBUMIN 3.4 g/dL (3.5-5.0); ALT/SGPT 381 U/L (21-72); AST/SGOT 175 U/L (17-59); BLOOD UREA NITROGEN 15 mg/dL (9-20); CALCIUM 9.1 mg/dl (8.6-10.4); GFR NON-AFRICAN AMERICAN > 60; HDL CHOLESTEROL 38 mg/dL (30-70)
[2018-07-17 08:42] LABS: LDL CHOLESTEROL 104 mg/dL (0-129)
--- NOTE | 2018-07-17 11:58 | CP.PCM.CON ---
History of Present Illness - History of Present Illness History of Present Illness: This is a 42 year old man with abdominal pain. Patient was admitted 07/05/2018 with abdominal pain determined to be due to acute pancreatitis. At that time, [place] [id number], and the liver enzymes were elevated: AST 442, ALT 675, ALKP 196, TBILI 5.6. Imaging studies confirmed the presence of gallstones and GB sludge, but the common duct was not dilated (4 mm). MRCP was recommended but was refused. By 07/08/2018, the LFTs had improved: AST 37, ALT 180, ALKP 157, TBILI 0.9. He was discharged on 07/08/2018 and given an appointment to clinic. He noted recurrent epigastric pain on 07/15/2018, and returned to the ER on . At that time, he was afebrile with stable vital signs. On abdominal exam, there was epigastric tenderness to palpation but no rebound or guarding. Blood work again showed evidence of gallstone pancreatitis: lipase 09010, AST 584, ALT 597, ALKP 304, TBILI 2.7. This morning, the pain has improved. He denies having nausea, vomiting, diarrhea, constipation, rectal bleeding. Repeat blood tests 07/17/2018 are as follows: AST 175, ALT 381, ALKP 291, TBILI 1.1. Repeat sonogram shows gallstones and sludge, with common duct 4.2 mm. MRCP is in progress. Review of Systems - Review of Systems All systems: reviewed and no additional remarkable complaints except - Constitutional Constitutional: absent: Chills, Fever - Cardiovascular Cardiovascular: absent: Chest Pain, Dyspnea - Respiratory Respiratory: absent: Dyspnea - Gastrointestinal Gastrointestinal: Abdominal Pain, Nausea, Vomiting. absent: Constipation, Diarrhea, Hematochezia, Melena - Genitourinary Genitourinary: absent: Dysuria, Hematuria Past Patient History - Past Medical History & Family History Past Medical History?: No - Past Social History Smoking Status: Heavy Smoker > 10 Cigarettes Daily - CARDIAC Hx Cardiac Disorders: No - PULMONARY Hx Respiratory Disorders: No - NEUROLOGICAL Hx Neurological Disorder: No - HEENT Hx HEENT Problems: No - RENAL Hx Chronic Kidney Disease: No - ENDOCRINE/METABOLIC Hx Endocrine Disorders: No - HEMATOLOGICAL/ONCOLOGICAL Hx Blood Disorders: No - INTEGUMENTARY Hx Dermatological Problems: No - MUSCULOSKELETAL/RHEUMATOLOGICAL Hx Falls: No - GASTROINTESTINAL Hx Gastrointestinal Disorders: Yes Hx Pancreatitis: Yes - GENITOURINARY/GYNECOLOGICAL Hx Genitourinary Disorders: No - PSYCHIATRIC Hx Substance Use: No - SURGICAL HISTORY Hx Surgeries: No - ANESTHESIA Hx Anesthesia: No Meds Allergies/Adverse Reactions: Allergies Allergy/AdvReac Type Severity Reaction Status Date / Time No Known Allergies Allergy Verified 07/16/18 07:49 - Medications Medications: Current Medications Ceftriaxone Sodium 1 gm/ (Sodium Chloride) 100 mls @ 100 mls/hr IVPB DAILY PHONG; Protocol Lactated Ringer's (Lactated Ringer's) 1,000 mls @ 250 mls/hr IV .Q4H PHONG Last Admin: 07/17/18 04:58 Dose: 250 mls/hr Influenza Virus Vaccine (Fluzone Quad 2650-2109) 60 mcg IM .ONCE ONE Stop: 07/19/18 10:01 Ondansetron HCl (Zofran Inj) 4 mg IVP Q6H PRN PRN Reason: Nausea/Vomiting Pneumococcal Polyvalent Vaccine (Pneumovax 23 Vaccine) 0.5 ml IM .ONCE ONE Stop: 07/18/18 10:01 Physical Exam - Constitutional Appears: No Acute Distress - Head Exam Head Exam: ATRAUMATIC, NORMOCEPHALIC - Eye Exam Eye Exam: EOMI, PERRL - Neck Exam Neck exam: Negative for: Lymphadenopathy, Thyromegaly - Respiratory Exam Respiratory Exam: NORMAL BREATHING PATTERN. absent: Rales, Rhonchi, Wheezes - Cardiovascular Exam Cardiovascular Exam: REGULAR RHYTHM, +S1, +S2. absent: Gallop, Rubs, Systolic Murmur - GI/Abdominal Exam GI & Abdominal Exam: Normal Bowel Sounds, Soft. absent: Mass, Organomegaly, Tenderness - Rectal Exam Rectal Exam: Deferred - Extremities Exam Extremities exam: Negative for: calf tenderness, pedal edema Results - Vital Signs Recent Vital Signs: Last Vital Signs Temp 98.1 F 07/17/18 07:00 Pulse 77 07/17/18 07:00 Resp 18 07/17/18 07:00 BP 119/74 07/17/18 07:00 Pulse Ox 97 07/17/18 07:00 - Labs Result Diagrams: 07/17/18 07:09 07/17/18 07:09 Labs: Laboratory Results - last 24 hr 1107/16/18 07/16/18 12:21 12:21 12:21 WBC RBC Hgb Hct MCV MCH MCHC RDW Plt Count MPV Neut % (Auto) Lymph % (Auto) [place] % (Auto) Eos % (Auto) Baso % (Auto) Neut # (Auto) Lymph # (Auto) [place] # (Auto) Eos # (Auto) Baso # (Auto) PT 12.8 H INR 1.2 APTT 32 Sodium Potassium Chloride Carbon Dioxide Anion Gap BUN Creatinine Est GFR ( Amer) Est GFR (Non-Af Amer) Random Glucose Calcium Total Bilirubin GGT 722 H AST ALT Alkaline Phosphatase Lactate Dehydrogenase Total Protein Albumin Globulin Albumin/Globulin Ratio Triglycerides Cholesterol LDL Cholesterol Direct HDL Cholesterol Acetaminophen < 10.0 L Alcohol, Quantitative 07/16/18 07/17/18 07/17/18 12:21 07:09 07:09 WBC 9.8 RBC 4.77 Hgb 14.4 D Hct 42.5 MCV 89.0 MCH 30.1 MCHC 33.8 RDW 13.7 Plt Count 221 MPV 9.3 Neut % (Auto) 69.0 Lymph % (Auto) 19.4 L [place] % (Auto) 8.8 Eos % (Auto) 2.2 Baso % (Auto) 0.6 Neut # (Auto) 6.7 Lymph # (Auto) 1.9 [place] # (Auto) 0.9 H Eos # (Auto) 0.2 Baso # (Auto) 0.1 PT INR APTT Sodium 144 Potassium 3.7 Chloride 104 Carbon Dioxide 28 Anion Gap 15 BUN 15 Creatinine 1.1 Est GFR ( Amer) > 60 Est GFR (Non-Af Amer) > 60 Random Glucose 84 Calcium 9.1 Total Bilirubin 1.1 GGT AST 175 H D ALT 381 H D Alkaline Phosphatase 291 H Lactate Dehydrogenase 924 H 475 Total Protein 6.7 Albumin 3.4 L D Globulin 3.3 Albumin/Globulin Ratio 1.1 Triglycerides 86 Cholesterol 186 LDL Cholesterol Direct 104 HDL Cholesterol 38 Acetaminophen Alcohol, Quantitative < 10 Assessment & Plan (1) Gallstone pancreatitis Assessment and Plan: Patient is admitted with a second episode of gallstone pancreatitis in the past two weeks. The GB contains stones and sludge, though there is no biliary dilatation. One day after admission, the pain has resolved. The LFTs have improved. Will check MRCP, advance diet, and plan for cholecystectomy on this admission. Status: Acute
--- NOTE | 2018-07-17 12:58 | MRI ---
Date of service: 07/17/2018 PROCEDURE: Magnetic Resonance Cholangiopancreatography HISTORY: COMPARISON: None available. TECHNIQUE: Multiplanar, multisequence MR images of the abdomen were obtained, including heavily T2 weighted MRCP images of the biliary system. Rotating maximum intensity projection images of the biliary system were generated. FINDINGS: MRCP: The common bile duct is of a normal caliber. No evidence of choledocholithiasis. No intrahepatic biliary ductal dilatation. LIVER: Normal size, contour and signal intensity. No mass. No intrahepatic biliary ductal dilatation. GALLBLADDER: Gallbladder sludge identified. No definite cholelithiasis. No mural thickening. No pericholecystic fluid or edema. SPLEEN: Unremarkable. PANCREAS: No mass. No evidence of pancreatitis. No ductal dilatation. ADRENALS: Unremarkable. KIDNEYS: Unremarkable. AORTA: No aneurysm. ASCITES: None. OTHER FINDINGS: None. IMPRESSION: Gallbladder sludge. No evidence of biliary obstruction. No evidence of cholecystitis.
--- NOTE | 2018-07-17 13:31 | RAD ---
Date of service: 07/17/2018 HISTORY: baseline, surgical clearance COMPARISON: No prior. TECHNIQUE: Chest PA and lateral FINDINGS: LUNGS: No active pulmonary disease. PLEURA: Small left pleural effusion. No right pleural effusion. No pneumothorax. CARDIOVASCULAR: No aortic atherosclerotic calcification present. Normal cardiac size. No pulmonary vascular congestion. OSSEOUS STRUCTURES: No significant abnormalities. VISUALIZED UPPER ABDOMEN: Normal. OTHER FINDINGS: None. IMPRESSION: Small left pleural effusion. No acute infiltrate.
--- NOTE | 2018-07-17 16:08 | CP.PCM.PN ---
Subjective - Date & Time of Evaluation Date of Evaluation: 07/17/18 Time of Evaluation: 16:00 - Subjective Subjective: medical Attending Note: medical scientific officer Nepali (Ny: [phone]) Patient seen and examined at bedside. Patient is accompanied by 16 year old son. patient gives permission to discuss his information with his son. Patient denies fever, denies headache, denies chest pain, denies shortness of breathe, denies abdominal pain, denies nausea, denies vomitting, denies dysuria. Discussed with patient and son regarding GI and general surgery recommendations in light of Abdominal US/MRCP, patient is agreeable to surgery. Objective - Vital Signs/Intake and Output Vital Signs (last 24 hours): Temp Pulse Resp BP Pulse Ox 98.1 F 77 18 119/74 97 07/17/18 07:00 07/17/18 07:00 07/17/18 07:00 07/17/18 07:00 07/17/18 07:00 Intake and Output: 07/17/18 07/17/18 06:59 18:59 Intake Total 2600 Balance 2600 - Medications Medications: Current Medications Ceftriaxone Sodium 1 gm/ (Sodium Chloride) 100 mls @ 100 mls/hr IVPB DAILY PHONG; Protocol Ondansetron HCl (Zofran Inj) 4 mg IVP Q6H PRN PRN Reason: Nausea/Vomiting Pneumococcal Polyvalent Vaccine (Pneumovax 23 Vaccine) 0.5 ml IM .ONCE ONE Stop: 07/18/18 10:01 - Labs Labs: 07/17/18 07:09 07/17/18 07:09 PT 12.8 SECONDS (9.7-12.2) H 07/16/18 12:21 INR 1.2 07/16/18 12:21 APTT 32 SECONDS (21-34) 07/16/18 12:21 - Constitutional Appears: Non-toxic, No Acute Distress - Head Exam Head Exam: NORMAL INSPECTION - Eye Exam Eye Exam: EOMI - ENT Exam ENT Exam: Mucous Membranes Moist - Respiratory Exam Respiratory Exam: Clear to Ausculation Bilateral, NORMAL BREATHING PATTERN. absent: Rales, Rhonchi, Wheezes - Cardiovascular Exam Cardiovascular Exam: REGULAR RHYTHM, +S1, +S2 - GI/Abdominal Exam GI & Abdominal Exam: Soft, Normal Bowel Sounds. absent: Distended, Firm, Guarding, Rigid, Tenderness, Rebound Additional comments: negative Whittington;s sign - Extremities Exam Extremities Exam: absent: Pedal Edema, Tenderness - Neurological Exam Neurological Exam: Alert, Awake, Oriented x3 - Psychiatric Exam Psychiatric exam: Normal Affect, Normal Mood - Skin Skin Exam: Dry, Intact, Normal Color, Warm Assessment and Plan (1) Gallstone pancreatitis Status: Acute (2) Elevated liver enzymes Status: Acute (3) Prophylactic measure Status: Acute Attending/Attestation - Attestation I have personally seen and examined this patient.: Yes I have fully participated in the care of the patient.: Yes I have reviewed all pertinent clinical information, including history, physical exam and plan: Yes Notes (Text): 1) Gallstone Pancreatitis Assessment/Plan * GI (Dr. Duvall) on consult-->help appreciated * General surgery (Dr. Ojeda) on consult-->help appreciated * Diet advanced to clears * Abdominal US (07/16/18): probably fatty hepatic infiltration however other infiltrateive hepatocellular disease process not excluded. Cholelithiasis with intraluminal gallbladder sludge * MRCP (07/17/18): gallbladder sludge, no evidence of biliary obstruction. no evidence of cholecystitis * Liver enzymes downtrending * Lower fluids to 100cc/hr * EKG sinus bradycardia (asymptomatic) * Chest xray: small left pleural effusion. no acute infiltrate * Patient is an intermediate risk individual with no prior cardiac history, no diabetes, no hx of COPD for intermediate risk procedure. Surgery and anesthesia to discuss risks and benefits of procedure prior to OR. Preoperative/intraoperative/postoperative management. 2) Transaminitis * improving see above. 3) prophylactic measure * Zofran 4mg IV Q6H PRN * SCDS b/l * protonix 40mg IV daily * ambulatory for DVT ppx
--- NOTE | 2018-07-18 03:15 | CP.PCM.PN ---
<Kaylah Reyes - Last Filed: 07/18/18 03:09> Subjective - Date & Time of Evaluation Date of Evaluation: 07/18/18 Time of Evaluation: 03:09 - Subjective Subjective: PGY-1 Medicine Progress Note for Dr. Dunaway's service Patient seen and examined at bedside. Patient offers no acute complaints. Patient denies fevers, chills, chest pain, sob, n/v, constipation or diarrhea, and dysuria. Objective - Vital Signs/Intake and Output Vital Signs (last 24 hours): Temp Pulse Resp BP Pulse Ox 98 F 73 18 118/73 96 07/17/18 17:23 07/17/18 17:23 07/17/18 17:23 07/17/18 17:23 07/17/18 17:23 Intake and Output: 07/17/18 07/18/18 18:59 06:59 Intake Total 1380 Balance 1380 - Medications Medications: Current Medications Ceftriaxone Sodium 1 gm/ (Sodium Chloride) 100 mls @ 100 mls/hr IVPB DAILY PHONG; Protocol Last Admin: 07/17/18 10:17 Dose: 100 mls/hr Lactated Ringer's (Lactated Ringer's) 1,000 mls @ 100 mls/hr IV .Q10H PHONG Last Admin: 07/17/18 18:15 Dose: 100 mls/hr Influenza Virus Vaccine (Fluzone Quad 3907-1895) 60 mcg IM .ONCE ONE Stop: 07/19/18 10:01 Ondansetron HCl (Zofran Inj) 4 mg IVP Q6H PRN PRN Reason: Nausea/Vomiting Pneumococcal Polyvalent Vaccine (Pneumovax 23 Vaccine) 0.5 ml IM .ONCE ONE Stop: 07/18/18 10:01 - Labs Labs: 07/17/18 07:09 07/17/18 07:09 PT 12.8 SECONDS (9.7-12.2) H 07/16/18 12:21 INR 1.2 07/16/18 12:21 APTT 32 SECONDS (21-34) 07/16/18 12:21 - Additional Findings Additional findings: - Constitutional Appears: Non-toxic, No Acute Distress - Head Exam Head Exam: NORMAL INSPECTION - Eye Exam Eye Exam: EOMI - ENT Exam ENT Exam: Mucous Membranes Moist - Respiratory Exam Respiratory Exam: Clear to Ausculation Bilateral, NORMAL BREATHING PATTERN. absent: Rales, Rhonchi, Wheezes - Cardiovascular Exam Cardiovascular Exam: REGULAR RHYTHM, +S1, +S2 - GI/Abdominal Exam GI & Abdominal Exam: Soft, Normal Bowel Sounds. absent: Distended, Firm, Guarding, Rigid, Tenderness, Rebound Additional comments: negative Whittington;s sign - Extremities Exam Extremities Exam: absent: Pedal Edema, Tenderness - Neurological Exam Neurological Exam: Alert, Awake, Oriented x3 - Psychiatric Exam Psychiatric exam: Normal Affect, Normal Mood - Skin Skin Exam: Dry, Intact, Normal Color, Warm Assessment and Plan - Assessment and Plan (Free Text) Assessment: 42 yo male admitted for gallstone pancreatitis. Plan: Pancreatitis likely secondary to gallstones Upon admission lipase [id number] Surgery consulted: Dr. Ojeda GI consulted: Dr. Duvall Abdominal US: probably fatty hepatic infiltration however other infiltrateive hepatocellular disease process not excluded. Cholelithiasis with intraluminal gallbladder sludge MRCP: gallbladder sludge, no evidence of biliary obstruction. no evidence of cholecystitis Ceftriaxone 1gm IVPB LR @ 100 mls/hr Transaminits Trending down Repeat CMP in AM PPX DVT ppx: SCDs GI ppx: not indicated at this time <Maty Dunaway V - Last Filed: 07/18/18 08:56> Objective - Vital Signs/Intake and Output Vital Signs (last 24 hours): Temp Pulse Resp BP Pulse Ox 97.9 F 69 18 129/82 97 07/18/18 07:00 07/18/18 07:00 07/18/18 07:00 07/18/18 07:00 07/18/18 07:00 Intake and Output: 07/18/18 07/18/18 06:59 18:59 Intake Total 2180 Balance 2180 - Medications Medications: Current Medications Ceftriaxone Sodium 1 gm/ (Sodium Chloride) 100 mls @ 100 mls/hr IVPB DAILY PHONG; Protocol Last Admin: 07/17/18 10:17 Dose: 100 mls/hr Lactated Ringer's (Lactated Ringer's) 1,000 mls @ 100 mls/hr IV .Q10H PHONG Last Admin: 07/18/18 04:33 Dose: 100 mls/hr Influenza Virus Vaccine (Fluzone Quad 8707-7787) 60 mcg IM .ONCE ONE Stop: 07/19/18 10:01 Ondansetron HCl (Zofran Inj) 4 mg IVP Q6H PRN PRN Reason: Nausea/Vomiting Pneumococcal Polyvalent Vaccine (Pneumovax 23 Vaccine) 0.5 ml IM .ONCE ONE Stop: 07/18/18 10:01 - Labs Labs: 07/18/18 07:53 07/18/18 07:53 PT 12.8 SECONDS (9.7-12.2) H 07/16/18 12:21 INR 1.2 07/16/18 12:21 APTT 32 SECONDS (21-34) 07/16/18 12:21 Assessment and Plan (1) Gallstone pancreatitis Status: Acute (2) Elevated liver enzymes Status: Acute (3) Prophylactic measure Status: Acute Attending/Attestation - Attestation I have personally seen and examined this patient.: Yes I have fully participated in the care of the patient.: Yes I have reviewed all pertinent clinical information, including history, physical exam and plan: Yes Notes (Text): Please refer to my progress note for the same date. Patient is tolerating clear diet. We are awaiting surgery to determine schedule for OR for cholecystectomy. Awaiting blood work from this morning.
[2018-07-18] MEDS: Lactated Ringer's 1,000 ML IV SCH (04:33)
[2018-07-18 08:04] LABS: BASO # 0.1 K/uL (0.0-0.2); BASO % 0.6 % (0.0-2.0); EOS # 0.3 K/uL (0.0-0.7); EOS % 3.4 % (0.0-4.0); HEMOGLOBIN 14.6 g/dL (12.0-18.0); LYMPH # 1.8 K/uL (1.0-4.3); MEAN CELL VOLUME 88.3 fL (80.0-94.0); MEAN CORPUSCULAR HEMOGLOBIN 30.4 pg (27.0-31.0); MEAN CORPUSCULAR HGB CONC 34.4 g/dL (33.0-37.0); MEAN PLATELET VOLUME 8.7 fL (7.2-11.7); MONO # 0.7 K/uL (0.0-0.8); MONO % 7.9 % (0.0-10.0); NEUT # 5.6 K/uL (1.8-7.0); NEUT % 67.1 % (50.0-75.0); RBC 4.81 Mil/uL (4.40-5.90); RED CELL DISTRIBUTION WIDTH 13.2 % (11.5-14.5); WHITE BLOOD COUNT 8.3 K/uL (4.8-10.8)
[2018-07-18 08:16] LABS: ALB/GLOB RATIO 1.1 (1.0-2.1); ALBUMIN 3.6 g/dL (3.5-5.0); ALT/SGPT 261 U/L (21-72); AST/SGOT 63 U/L (17-59); BLOOD UREA NITROGEN 9 mg/dL (9-20); GFR NON-AFRICAN AMERICAN > 60
--- NOTE | 2018-07-18 08:54 | CP.PCM.PN ---
Subjective - Date & Time of Evaluation Date of Evaluation: 07/18/18 Time of Evaluation: 08:50 - Subjective Subjective: Medical Attending Note: Partnership Marketing Manager: [phone] (camille)--[place] Patient seen and examined at bedside. Patient is tolerating liquid diet. Patient denies fever, denies chest pain, denies palpations, denies abdominal pain, denies nausea, denies constipation, denies dysuria. We are awaiting surgery eval to determine for OR. Objective - Vital Signs/Intake and Output Vital Signs (last 24 hours): Temp Pulse Resp BP Pulse Ox 97.9 F 69 18 129/82 97 07/18/18 07:00 07/18/18 07:00 07/18/18 07:00 07/18/18 07:00 07/18/18 07:00 Intake and Output: 07/18/18 07/18/18 06:59 18:59 Intake Total 2180 Balance 2180 - Medications Medications: Current Medications Ceftriaxone Sodium 1 gm/ (Sodium Chloride) 100 mls @ 100 mls/hr IVPB DAILY PHONG; Protocol Last Admin: 07/17/18 10:17 Dose: 100 mls/hr Lactated Ringer's (Lactated Ringer's) 1,000 mls @ 100 mls/hr IV .Q10H PHONG Last Admin: 07/18/18 04:33 Dose: 100 mls/hr Influenza Virus Vaccine (Fluzone Quad 4634-9545) 60 mcg IM .ONCE ONE Stop: 07/19/18 10:01 Ondansetron HCl (Zofran Inj) 4 mg IVP Q6H PRN PRN Reason: Nausea/Vomiting Pneumococcal Polyvalent Vaccine (Pneumovax 23 Vaccine) 0.5 ml IM .ONCE ONE Stop: 07/18/18 10:01 - Labs Labs: 07/18/18 07:53 07/18/18 07:53 PT 12.8 SECONDS (9.7-12.2) H 07/16/18 12:21 INR 1.2 07/16/18 12:21 APTT 32 SECONDS (21-34) 07/16/18 12:21 - Constitutional Appears: Non-toxic, No Acute Distress - Head Exam Head Exam: NORMAL INSPECTION - Eye Exam Eye Exam: EOMI - ENT Exam ENT Exam: Mucous Membranes Moist - Respiratory Exam Respiratory Exam: Clear to Ausculation Bilateral, NORMAL BREATHING PATTERN. absent: Rales, Rhonchi, Wheezes - Cardiovascular Exam Cardiovascular Exam: REGULAR RHYTHM, +S1, +S2 - GI/Abdominal Exam GI & Abdominal Exam: Soft, Normal Bowel Sounds. absent: Distended, Rigid, Tenderness, Rebound Additional comments: negative martinez's sign - Extremities Exam Extremities Exam: absent: Pedal Edema, Tenderness - Neurological Exam Neurological Exam: Alert, Awake, Oriented x3 - Psychiatric Exam Psychiatric exam: Normal Affect, Normal Mood - Skin Skin Exam: Dry, Intact, Normal Color, Warm Assessment and Plan (1) Gallstone pancreatitis Status: Acute (2) Elevated liver enzymes Status: Acute (3) Prophylactic measure Status: Acute Attending/Attestation - Attestation I have personally seen and examined this patient.: Yes I have fully participated in the care of the patient.: Yes I have reviewed all pertinent clinical information, including history, physical exam and plan: Yes Notes (Text): 1) Gallstone Pancreatitis Assessment/Plan * GI (Dr. Duvall) on consult-->help appreciated * General surgery (Dr. Ojeda) on consult-->help appreciated * Diet advanced to clears * tolerating * Abdominal US (07/16/18): probably fatty hepatic infiltration however other infiltrateive hepatocellular disease process not excluded. Cholelithiasis with intraluminal gallbladder sludge * MRCP (07/17/18): gallbladder sludge, no evidence of biliary obstruction. no evidence of cholecystitis * Liver enzymes downtrending * Lower fluids to 100cc/hr * EKG sinus bradycardia (asymptomatic) * Chest xray: small left pleural effusion. no acute infiltrate * Patient is an intermediate risk individual with no prior cardiac history, no diabetes, no hx of COPD for intermediate risk procedure. Surgery and ane sthesia to discuss risks and benefits of procedure prior to OR. Preoperative/intraoperative/postoperative management. 2) Transaminitis * improving see above. 3) prophylactic measure * Zofran 4mg IV Q6H PRN * SCDS b/l * protonix 40mg IV daily * ambulatory for DVT ppx
[2018-07-18] MEDS ORDERED: Pneumococcal 23-Valent Vaccine IM ONE (10:00)
--- NOTE | 2018-07-18 11:40 | CP.PCM.PN ---
Subjective - Date & Time of Evaluation Date of Evaluation: 07/18/18 Time of Evaluation: 11:36 - Subjective Subjective: Patient denies having nausea, vomitng, abdominal pain, diarrhea. LFTs are generally better: AST 63 (175 yesterday), ALT 261 (381), ALKP 288 (291), TBILI 0.9 (1.1). MRCP showed no evidence of biliary dilatation or CBD stones. Objective - Vital Signs/Intake and Output Vital Signs (last 24 hours): Temp Pulse Resp BP Pulse Ox 97.9 F 69 18 129/82 97 07/18/18 07:00 07/18/18 07:00 07/18/18 07:00 07/18/18 07:00 07/18/18 07:00 Intake and Output: 07/18/18 07/18/18 06:59 18:59 Intake Total 2180 Balance 2180 - Medications Medications: Current Medications Ceftriaxone Sodium 1 gm/ (Sodium Chloride) 100 mls @ 100 mls/hr IVPB DAILY PHONG; Protocol Last Admin: 07/18/18 10:03 Dose: 100 mls/hr Lactated Ringer's (Lactated Ringer's) 1,000 mls @ 100 mls/hr IV .Q10H PHONG Last Admin: 07/18/18 04:33 Dose: 100 mls/hr Influenza Virus Vaccine (Fluzone Quad 0746-7912) 60 mcg IM .ONCE ONE Stop: 07/19/18 10:01 Ondansetron HCl (Zofran Inj) 4 mg IVP Q6H PRN PRN Reason: Nausea/Vomiting - Labs Labs: 07/18/18 07:53 07/18/18 07:53 PT 12.8 SECONDS (9.7-12.2) H 07/16/18 12:21 INR 1.2 07/16/18 12:21 APTT 32 SECONDS (21-34) 07/16/18 12:21 - Constitutional Appears: No Acute Distress - Head Exam Head Exam: ATRAUMATIC, NORMOCEPHALIC - Eye Exam Eye Exam: EOMI, PERRL - Neck Exam Neck Exam: absent: Lymphadenopathy, Thyromegaly - Respiratory Exam Respiratory Exam: NORMAL BREATHING PATTERN. absent: Rales, Rhonchi, Wheezes - Cardiovascular Exam Cardiovascular Exam: REGULAR RHYTHM, +S1, +S2. absent: Gallop, Rubs, Murmur - GI/Abdominal Exam GI & Abdominal Exam: Soft, Normal Bowel Sounds. absent: Tenderness, Mass, Organomegaly - Rectal Exam Rectal Exam: Deferred - Extremities Exam Extremities Exam: absent: Calf Tenderness, Pedal Edema Assessment and Plan (1) Gallstone pancreatitis Assessment & Plan: Patient was admitted with gallstone pancreatitis. He is now pain-free. The liver enzymes are improving. MRCP shows no CBD dilatation or stones. Recommend follow up. Status: Acute
--- NOTE | 2018-07-18 13:23 | CP.PCM.PN ---
Subjective - Date & Time of Evaluation Date of Evaluation: 07/18/18 Time of Evaluation: 13:20 - Subjective Subjective: General Surgery progress Note for Dr. Ojeda This 42M was seen and examined this Am at bedside no acute events reported overnight. He reports that his pain is resolved and is tolerating clears. He denies any fevers chills or chest pain or new or concerning symptoms Objective - Vital Signs/Intake and Output Vital Signs (last 24 hours): Temp Pulse Resp BP Pulse Ox 97.9 F 69 18 129/82 97 07/18/18 07:00 07/18/18 07:00 07/18/18 07:00 07/18/18 07:00 07/18/18 07:00 Intake and Output: 07/18/18 07/18/18 06:59 18:59 Intake Total 2180 Balance 2180 - Medications Medications: Current Medications Ceftriaxone Sodium 1 gm/ (Sodium Chloride) 100 mls @ 100 mls/hr IVPB DAILY PHONG; Protocol Last Admin: 07/18/18 10:03 Dose: 100 mls/hr Lactated Ringer's (Lactated Ringer's) 1,000 mls @ 100 mls/hr IV .Q10H PHONG Last Admin: 07/18/18 04:33 Dose: 100 mls/hr Influenza Virus Vaccine (Fluzone Quad 1560-2751) 60 mcg IM .ONCE ONE Stop: 07/19/18 10:01 Ondansetron HCl (Zofran Inj) 4 mg IVP Q6H PRN PRN Reason: Nausea/Vomiting - Labs Labs: 07/18/18 07:53 07/18/18 07:53 PT 12.8 SECONDS (9.7-12.2) H 07/16/18 12:21 INR 1.2 07/16/18 12:21 APTT 32 SECONDS (21-34) 07/16/18 12:21 - Constitutional Appears: Non-toxic, No Acute Distress - Head Exam Head Exam: ATRAUMATIC, NORMOCEPHALIC - Eye Exam Eye Exam: EOMI - ENT Exam ENT Exam: Mucous Membranes Moist - Respiratory Exam Respiratory Exam: NORMAL BREATHING PATTERN - Cardiovascular Exam Cardiovascular Exam: +S1, +S2 - GI/Abdominal Exam GI & Abdominal Exam: Soft. absent: Distended, Firm, Guarding, Rigid, Tenderness - Neurological Exam Neurological Exam: Alert, Awake - Psychiatric Exam Psychiatric exam: Normal Affect, Normal Mood - Skin Skin Exam: Dry, Intact Assessment and Plan - Assessment and Plan (Free Text) Assessment: 42M with Gallstone pancreatitis MRCP no CBD stone Regular diet PRN pain and nausea medication Trend CBC and CMP Cholecystectomy prior to discharge Further recs per Dr. Rusty Bryan PGY3
[2018-07-19] MEDS: Lactated Ringer's 1,000 ML IV SCH ×2 (04:30→16:21)
[2018-07-19 06:49] LABS: BASO # 0.1 K/uL (0.0-0.2); BASO % 0.8 % (0.0-2.0); EOS # 0.4 K/uL (0.0-0.7); HEMOGLOBIN 14.3 g/dL (12.0-18.0); LYMPH # 1.9 K/uL (1.0-4.3); LYMPH % 20.3 % (20.0-40.0); MEAN CORPUSCULAR HEMOGLOBIN 30.3 pg (27.0-31.0); MEAN CORPUSCULAR HGB CONC 34.4 g/dL (33.0-37.0); MEAN PLATELET VOLUME 8.9 fL (7.2-11.7); MONO # 0.6 K/uL (0.0-0.8); MONO % 6.5 % (0.0-10.0); NEUT # 6.5 K/uL (1.8-7.0); NEUT % 68.4 % (50.0-75.0); NRBC % 0.1 % (0.0-2.0); RBC 4.73 Mil/uL (4.40-5.90); RED CELL DISTRIBUTION WIDTH 13.2 % (11.5-14.5); WHITE BLOOD COUNT 9.5 K/uL (4.8-10.8)
[2018-07-19 06:55] LABS: ALB/GLOB RATIO 1.1 (1.0-2.1); ALBUMIN 3.6 g/dL (3.5-5.0); ALT/SGPT 178 U/L (21-72); AST/SGOT 36 U/L (17-59); BLOOD UREA NITROGEN 7 mg/dL (9-20); CALCIUM 8.8 mg/dl (8.6-10.4); GFR NON-AFRICAN AMERICAN > 60; LIPASE 1364 U/L (23-300)
--- NOTE | 2018-07-19 07:23 | CP.PCM.PN ---
Subjective - Date & Time of Evaluation Date of Evaluation: 07/19/18 Time of Evaluation: 09:00 - Subjective Subjective: PGY 1 Medicine Progress Note for Hospitalist Dr. Michael Marquez. Patient seen and examined at bedside. No overnight events reports. Patient lying in bed comfortably. Patient currently has no complaints. Patient denies chest pain, SOB, abdominal pain, N/V, F/C, constipation, diarrhea, dysuria, hematuria. Patient denies abdominal pain w/ food. Objective - Vital Signs/Intake and Output Vital Signs (last 24 hours): Temp Pulse Resp BP Pulse Ox 97.8 F 70 20 123/79 94 L 07/18/18 23:05 07/18/18 23:05 07/18/18 23:05 07/18/18 23:05 07/18/18 23:05 Intake and Output: 07/19/18 07/19/18 06:59 18:59 Intake Total 0 Balance 0 - Medications Medications: Current Medications Ceftriaxone Sodium 1 gm/ (Sodium Chloride) 100 mls @ 100 mls/hr IVPB DAILY PHONG; Protocol Last Admin: 07/18/18 10:03 Dose: 100 mls/hr Lactated Ringer's (Lactated Ringer's) 1,000 mls @ 100 mls/hr IV .Q10H PHONG Last Admin: 07/19/18 04:30 Dose: 100 mls/hr Influenza Virus Vaccine (Fluzone Quad 5964-9009) 60 mcg IM .ONCE ONE Stop: 07/19/18 10:01 Ondansetron HCl (Zofran Inj) 4 mg IVP Q6H PRN PRN Reason: Nausea/Vomiting - Labs Labs: 07/19/18 06:36 07/19/18 06:36 PT 12.8 SECONDS (9.7-12.2) H 07/16/18 12:21 INR 1.2 07/16/18 12:21 APTT 32 SECONDS (21-34) 07/16/18 12:21 - Constitutional Appears: Non-toxic, No Acute Distress - Head Exam Head Exam: ATRAUMATIC, NORMAL INSPECTION, NORMOCEPHALIC - Eye Exam Eye Exam: Normal appearance - ENT Exam ENT Exam: Mucous Membranes Moist - Respiratory Exam Respiratory Exam: Clear to Ausculation Bilateral, NORMAL BREATHING PATTERN. absent: Rales, Rhonchi, Wheezes - Cardiovascular Exam Cardiovascular Exam: +S1, +S2 - GI/Abdominal Exam GI & Abdominal Exam: Soft, Normal Bowel Sounds. absent: Firm, Guarding, Rigid - Extremities Exam Extremities Exam: Full ROM, Normal Inspection. absent: Calf Tenderness, Pedal Edema - Back Exam Back Exam: absent: CVA tenderness (L), CVA tenderness (R) - Neurological Exam Neurological Exam: Alert, Awake, Oriented x3 - Psychiatric Exam Psychiatric exam: Normal Affect, Normal Mood - Skin Skin Exam: Dry, Intact, Normal Color, Warm Assessment and Plan - Assessment and Plan (Free Text) Plan: 42 Y male w/ PMHx of pancreatits presents to ED w/ increasing abdominal pain, admited for acute pancreatitis: Acute Gallstone Pancreatitis - Lipase 89214, AST 584, ALT 597, Alk phos 304 on admission on 07/16 -> currently downtrending, lipase 1364 & AST 36, AST 178, Alk phos 264 - WBC 12.4, Afebrile, vitals WNL, Lactate 1.4 on admission on 07/16 - R/o causes of pancreatitis including gallstone vs ETOH vs other - ETOH < 10 - MRCP 07/16/18: Gallbladder sludge. No evidence of biliary obstruction. No evidence of cholecystitis. - U/S - probably fatty heaptic infiltrate however other infiltrate hepatocellular disease process no excluded. Cholelithiasis with intralumenal gallbaddler sludge. Limited evaluation of pancreas - R/o possible cholangitis - Rocephin 1gm q24h - LR 250 to decreased to now 100 ml/hr - Zofran mg IVP - F/u GI, Dr. Duvall recs - recommend f/u care - F/u general surgery, Dr. Ojeda recs - surgery for cholecystectomy - EKG & CXR for baseline/ potential surgical clearance - small left pleural effusion - Sinus sanchez - asymptomatic - MELD score 15, correlates w/ 6% 3- month mortality for hospitalized patient - Child Lisa Score 6, Correlates w/ Child class A - 1 year survival 100% - Ransion criteria admission: 2 points: 1% predicted mortality - Pt has minimal to no pain on examination hold pain medications for now Prophylaxis Diet: NPO @midnight DVT: contraindicated; scds Dispo: Possible D/C following surgery tomorrow 07/20. Will discus with surgery for gallbladder pathology for possible d/c with abx. D/w Dr. Michael hernández, PGY1
[2018-07-19] MEDS ORDERED: Influenza Vaccine 60 MCG/0.5 ML SYR (3 yr & up) IM ONE ×2 (10:00)
--- NOTE | 2018-07-19 12:21 | CP.PCM.PN ---
Subjective - Date & Time of Evaluation Date of Evaluation: 07/19/18 Time of Evaluation: 06:55 - Subjective Subjective: general Surgery Dr. Ojeda Patient seen and examined this am at bedside. NAEO per nursing. Patient states abdominal pain is resolved. He denies n/v, f/c JEFFRIES, CP SOB and extremity pain or weakness. Objective - Vital Signs/Intake and Output Vital Signs (last 24 hours): Temp Pulse Resp BP Pulse Ox 97.9 F 66 18 122/80 96 07/19/18 08:18 07/19/18 08:18 07/19/18 08:18 07/19/18 08:18 07/19/18 08:18 Intake and Output: 07/19/18 07/19/18 06:59 18:59 Intake Total 2079 Balance 2079 - Medications Medications: Current Medications Ceftriaxone Sodium 1 gm/ (Sodium Chloride) 100 mls @ 100 mls/hr IVPB DAILY PHONG; Protocol Last Admin: 07/19/18 10:34 Dose: 100 mls/hr Lactated Ringer's (Lactated Ringer's) 1,000 mls @ 100 mls/hr IV .Q10H PHONG Last Admin: 07/19/18 04:30 Dose: 100 mls/hr Ondansetron HCl (Zofran Inj) 4 mg IVP Q6H PRN PRN Reason: Nausea/Vomiting - Labs Labs: 07/19/18 06:36 07/19/18 06:36 PT 12.8 SECONDS (9.7-12.2) H 07/16/18 12:21 INR 1.2 07/16/18 12:21 APTT 32 SECONDS (21-34) 07/16/18 12:21 - Constitutional Appears: Well, Non-toxic, No Acute Distress - Head Exam Head Exam: ATRAUMATIC, NORMOCEPHALIC - Eye Exam Eye Exam: EOMI - ENT Exam ENT Exam: Mucous Membranes Moist - Respiratory Exam Respiratory Exam: NORMAL BREATHING PATTERN - Cardiovascular Exam Cardiovascular Exam: REGULAR RHYTHM - GI/Abdominal Exam GI & Abdominal Exam: Soft, Tenderness (mild epigastric). absent: Distended, Guarding - Extremities Exam Extremities Exam: absent: Calf Tenderness, Pedal Edema - Neurological Exam Neurological Exam: Alert, Awake, Oriented x3 - Psychiatric Exam Psychiatric exam: Normal Affect - Skin Skin Exam: Dry, Intact, Normal Color, Warm Assessment and Plan - Assessment and Plan (Free Text) Assessment: 42 yr old male with likely gallstone pancreatitis Plan: c/w Regular diet, make NPO after midnight to OR tomorrow for cholecystectomy PRN pain and nausea medication Trend CBC and CMP Further recs per Dr. Rusty Gipson, PGY1
--- NOTE | 2018-07-19 19:42 | CARD ---
APPROVED REPORT Date of service: 07/16/2018 EKG Measurement Heart [id number] <Conclusion> Sinus bradycardia Otherwise normal ECG
[2018-07-20] MEDS: Lactated Ringer's 1,000 ML IV SCH ×3 (03:30→22:08)
[2018-07-20 08:54] LABS: BASO # 0.1 K/uL (0.0-0.2); BASO % 1.2 % (0.0-2.0); EOS # 0.4 K/uL (0.0-0.7); EOS % 5.1 % (0.0-4.0); HEMOGLOBIN 15.2 g/dL (12.0-18.0); LYMPH # 1.7 K/uL (1.0-4.3); MEAN CELL VOLUME 88.4 fL (80.0-94.0); MEAN CORPUSCULAR HEMOGLOBIN 30.5 pg (27.0-31.0); MEAN CORPUSCULAR HGB CONC 34.6 g/dL (33.0-37.0); MEAN PLATELET VOLUME 8.9 fL (7.2-11.7); MONO # 0.6 K/uL (0.0-0.8); MONO % 8.3 % (0.0-10.0); NEUT # 4.1 K/uL (1.8-7.0); NEUT % 60.4 % (50.0-75.0); RBC 4.97 Mil/uL (4.40-5.90); RED CELL DISTRIBUTION WIDTH 13.4 % (11.5-14.5); WHITE BLOOD COUNT 6.8 K/uL (4.8-10.8)
[2018-07-20 08:59] LABS: INR 1.1; PROTHROMBIN TIME 12.1 SECONDS (9.7-12.2)
[2018-07-20 09:07] LABS: ALB/GLOB RATIO 1.1 (1.0-2.1); ALT/SGPT 147 U/L (21-72); AST/SGOT 34 U/L (17-59); BLOOD UREA NITROGEN 9 mg/dL (9-20); CALCIUM 9.3 mg/dl (8.6-10.4); GFR NON-AFRICAN AMERICAN > 60
--- NOTE | 2018-07-20 09:38 | CP.PCM.PN ---
Subjective - Date & Time of Evaluation Date of Evaluation: 07/20/18 Time of Evaluation: 09:10 - Subjective Subjective: PGY 1 Medicine Progress Note for Hospitalist Dr. Mihcael Marquez. Patient seen and examined at bedside. No overnight events reports. Patient lying in bed comfortably. Patient currently has no complaints. Patient denies chest pain, SOB, abdominal pain, N/V, F/C, constipation, diarrhea, dysuria, hematuria. Patient denies abdominal pain w/ food. Patient is scheduled for cholecystectomy with surgery @ 12pm. Objective - Vital Signs/Intake and Output Vital Signs (last 24 hours): Temp Pulse Resp BP Pulse Ox 97.5 F L 60 20 112/71 95 07/20/18 00:14 07/20/18 00:14 07/20/18 00:14 07/20/18 00:14 07/20/18 00:14 Intake and Output: 07/20/18 07/20/18 06:59 18:59 Intake Total 800 Balance 800 - Medications Medications: Current Medications Ceftriaxone Sodium 1 gm/ (Sodium Chloride) 100 mls @ 100 mls/hr IVPB DAILY PHONG; Protocol Last Admin: 07/19/18 10:34 Dose: 100 mls/hr Lactated Ringer's (Lactated Ringer's) 1,000 mls @ 100 mls/hr IV .Q10H PHONG Last Admin: 07/20/18 03:30 Dose: 100 mls/hr Ondansetron HCl (Zofran Inj) 4 mg IVP Q6H PRN PRN Reason: Nausea/Vomiting - Labs Labs: 07/20/18 08:45 07/20/18 08:45 PT 12.1 SECONDS (9.7-12.2) 07/20/18 08:45 INR 1.1 07/20/18 08:45 APTT 35 SECONDS (21-34) H 07/20/18 08:45 - Constitutional Appears: Non-toxic, No Acute Distress - Head Exam Head Exam: NORMAL INSPECTION - Eye Exam Eye Exam: Normal appearance - ENT Exam ENT Exam: Mucous Membranes Moist - Respiratory Exam Respiratory Exam: Clear to Ausculation Bilateral, NORMAL BREATHING PATTERN. absent: Rales, Rhonchi, Wheezes - Cardiovascular Exam Cardiovascular Exam: +S1, +S2 - GI/Abdominal Exam GI & Abdominal Exam: Soft, Normal Bowel Sounds. absent: Firm, Guarding, Rigid - Extremities Exam Extremities Exam: Full ROM, Normal Inspection. absent: Calf Tenderness, Pedal Edema - Back Exam Back Exam: absent: CVA tenderness (L), CVA tenderness (R) - Neurological Exam Neurological Exam: Alert, Awake, Oriented x3 - Psychiatric Exam Psychiatric exam: Normal Affect, Normal Mood - Skin Skin Exam: Dry, Intact, Normal Color, Warm Assessment and Plan - Assessment and Plan (Free Text) Assessment: 42 Y male w/ PMHx of pancreatits presents to ED w/ increasing abdominal pain, admited for acute pancreatitis: Acute Gallstone Pancreatitis - Lipase 17172, AST 584, ALT 597, Alk phos 304 on admission on 07/16 -> currently downtrending, lipase 1364 & AST 34, AST 147, Alk phos 250 - WBC 12.4, Afebrile, vitals WNL, Lactate 1.4 on admission on 07/16 -> WBC resolved - R/o causes of pancreatitis including gallstone vs ETOH vs other - ETOH < 10 - MRCP 07/16/18: Gallbladder sludge. No evidence of biliary obstruction. No evidence of cholecystitis. - U/S - probably fatty heaptic infiltrate however other infiltrate hepatocellular disease process no excluded. Cholelithiasis with intralumenal gallbaddler sludge. Limited evaluation of pancreas - R/o possible cholangitis - Rocephin 1gm q24h - LR 250 to decreased to now 100 ml/hr - Zofran mg IVP - F/u GI, Dr. Duvall recs - recommend f/u care - F/u general surgery, Dr. Ojeda recs - surgery for cholecystectomy today 07/20 - EKG & CXR for baseline/ potential surgical clearance - small left pleural effusion - Sinus sanchez - asymptomatic - MELD score 15, correlates w/ 6% 3- month mortality for hospitalized patient - Child Lisa Score 6, Correlates w/ Child class A - 1 year survival 100% - Ransion criteria admission: 2 points: 1% predicted mortality - Pt has minimal to no pain on examination hold pain medications for now Prophylaxis Diet: NPO @midnight DVT: contraindicated; scds Dispo: Possible D/C tomorrow 07/21. D/w Dr. Michale hernández, PGY1
[2018-07-20] MEDS ORDERED: Midazolam 2 MG/2 ML VIAL ONE (09:47)
[2018-07-20] MEDS ORDERED: Propofol 10 mg/ml Inj (20 ML) ONE ×2 (09:47→11:12)
[2018-07-20] MEDS ORDERED: Rocuronium 10 mg/ml (10 ml) ONE (10:08)
[2018-07-20] MEDS ORDERED: Neostigmine Methylsulfate 3mg/3ml Syringe IV ONE (11:13)
--- NOTE | 2018-07-20 11:35 | PCM.SURG1 ---
Surgeon's Initial Post Op Note - Surgeon's Notes Surgeon: Dr. Ojeda Senior Reservations Agent: Iliana Campbell, PGY2; Kim Chairez, OMS3 Type of Anesthesia: General Endo Anesthesia Administered By: Dr. Appiah Pre-Operative Diagnosis: acute cholecystitis, cholelithiasis Operative Findings: gallbladder inflammation with surrounding adhesions Post-Operative Diagnosis: same Operation Performed: laparoscopic cholecystectomy Specimen/Specimens Removed: gallbladder Estimated Blood Loss: EBL {In ML}: 10 Date of Surgery/Procedure: 07/20/18 Time of Surgery/Procedure: 10:00
[2018-07-20] MEDS ORDERED: oxyCODONE 5 mg Immediate Release Tab PO PRN (11:36)
[2018-07-20] MEDS ORDERED: HYDROmorphone 0.5 mg/0.5 ml ISec IVP PRN (12:15)
[2018-07-20] MEDS ORDERED: HYDROmorphone 0.5 mg/0.5 ml ISec ONE (12:22)
[2018-07-20 14:24] VITALS: RESP 20
--- NOTE | 2018-07-20 23:04 | OP ---
PROCEDURE DATE: 07/20/2018 PREOPERATIVE DIAGNOSIS: Cholelithiasis status post biliary pancreatitis. POSTOPERATIVE DIAGNOSIS: Cholelithiasis and cholecystitis. SURGEON: Raimundo Ojeda MD. LACE TEARING SUPERVISOR: Iliana Campbell DO. TYPE OF ANESTHESIA: General. ANESTHESIOLOGIST: Dr. Appiah. DESCRIPTION OF PROCEDURE: With the patient in the supine position under adequate general anesthesia, the abdomen was prepped and draped in the usual sterile manner. A Veress needle puncture was performed at the umbilicus with insufflation to 15 cm water pressure of CO2, and a 10 mm laparoscopic trocar was inserted via an infraumbilical incision. Under direct vision, additional trocars were inserted in the epigastrium and right costal margin. The gallbladder was visualized. It did not appear acutely inflamed; however, the wall was thickened consistent with recent inflammation. The gallbladder fundus was grasped and elevated. The infundibulum was grasped and retracted laterally. The cystic duct was identified and cleared down towards the junction with the common bile duct. The cystic duct was then triply clipped and divided. Anterior and posterior branches of the cystic artery were identified and it was triply clipped and divided, and the gallbladder was dissected free of the liver bed using electrocautery. The liver bed was also mildly edematous consistent with recent inflammation. The liver bed was inspected for hemostasis and the dissection was completed. The gallbladder was placed in a specimen retrieval bag and removed via the umbilical port site. The right upper quadrant was irrigated and suctioned. The pneumoperitoneum was released and the trocars were removed. The umbilical port site was closed with a [id number] fascial suture of 0 Vicryl. All incisions were closed with 4-0 Monocryl subcuticular sutures and Steri-Strips. Dry sterile dressings were applied. The patient tolerated the procedure well and transferred to recovery room in stable condition. Estimated blood loss for the procedure was 10 mL. Raimundo Ojeda MD
--- NOTE | 2018-07-21 07:03 | CP.PCM.PN ---
Objective - Vital Signs/Intake and Output Vital Signs (last 24 hours): Temp Pulse Resp BP Pulse Ox 98.5 F 70 20 122/80 96 07/21/18 00:00 07/21/18 00:00 07/21/18 00:00 07/21/18 00:00 07/21/18 00:00 Intake and Output: 07/21/18 07/21/18 06:59 18:59 Intake Total 0 Balance 0 - Medications Medications: Current Medications Docusate Sodium (Colace) 100 mg PO DAILY PHONG Ceftriaxone Sodium 1 gm/ (Sodium Chloride) 100 mls @ 100 mls/hr IVPB DAILY PHONG; Protocol Last Admin: 07/20/18 10:13 Dose: Not Given Lactated Ringer's (Lactated Ringer's) 1,000 mls @ 100 mls/hr IV .Q10H PHONG Last Admin: 07/20/18 22:08 Dose: 100 mls/hr Morphine Sulfate (Morphine) 2 mg IVP Q4 PRN PRN Reason: Pain, severe (8-10) Last Admin: 07/21/18 00:34 Dose: 2 mg Ondansetron HCl (Zofran Inj) 4 mg IVP Q6H PRN PRN Reason: Nausea/Vomiting Oxycodone HCl (Oxycodone Immediate Release Tab) 5 mg PO Q6 PRN PRN Reason: Pain, moderate (4-7) - Labs Labs: 07/20/18 08:45 07/20/18 08:45 PT 12.1 SECONDS (9.7-12.2) 07/20/18 08:45 INR 1.1 07/20/18 08:45 APTT 35 SECONDS (21-34) H 07/20/18 08:45
[2018-07-21 07:17] LABS: BASO % 0.6 % (0.0-2.0); EOS # 0.3 K/uL (0.0-0.7); EOS % 4.1 % (0.0-4.0); LYMPH # 1.9 K/uL (1.0-4.3); LYMPH % 23.8 % (20.0-40.0); MEAN CORPUSCULAR HEMOGLOBIN 29.7 pg (27.0-31.0); MEAN CORPUSCULAR HGB CONC 34.5 g/dL (33.0-37.0); MEAN PLATELET VOLUME 8.8 fL (7.2-11.7); MONO # 0.7 K/uL (0.0-0.8); MONO % 8.1 % (0.0-10.0); NEUT # 5.2 K/uL (1.8-7.0); NEUT % 63.4 % (50.0-75.0); RBC 2.59 Mil/uL (4.40-5.90); RED CELL DISTRIBUTION WIDTH 13.7 % (11.5-14.5); WHITE BLOOD COUNT 8.2 K/uL (4.8-10.8)
[2018-07-21 07:38] LABS: ALB/GLOB RATIO 0.8 (1.0-2.1); ALBUMIN 3.1 g/dL (3.5-5.0); ALT/SGPT 11 U/L (21-72); AST/SGOT 19 U/L (17-59); BLOOD UREA NITROGEN 24 mg/dL (9-20); CALCIUM 8.5 mg/dl (8.6-10.4); GFR NON-AFRICAN AMERICAN > 60
[2018-07-21 07:46] LABS: HEMOGLOBIN 7.7 g/dL (12.0-18.0)
[2018-07-21 07:47] LABS: MEAN CELL VOLUME 86.3 fL (80.0-94.0)
[2018-07-21 08:33] LABS: EOS # 0.2 K/uL (0.0-0.7); LYMPH # 2.6 K/uL (1.0-4.3); MEAN CORPUSCULAR HEMOGLOBIN 30.1 pg (27.0-31.0); NRBC % 0.1 % (0.0-2.0)
[2018-07-21 08:38] VITALS: BP 136/90; PULSE 67; TEMP 97.6; O2SAT 95
[2018-07-21 08:50] LABS: BASO # 0.2 K/uL (0.0-0.2); BASO % 1.7 % (0.0-2.0); EOS % 1.4 % (0.0-4.0); MEAN CELL VOLUME 87.9 fL (80.0-94.0); MEAN CORPUSCULAR HGB CONC 34.2 g/dL (33.0-37.0); MONO # 0.9 K/uL (0.0-0.8); MONO % 6.8 % (0.0-10.0); NEUT # 9.2 K/uL (1.8-7.0); NEUT % 70.1 % (50.0-75.0); RBC 4.81 Mil/uL (4.40-5.90); RED CELL DISTRIBUTION WIDTH 12.9 % (11.5-14.5)
[2018-07-21 08:52] LABS: HEMOGLOBIN 14.5 g/dL (12.0-18.0); WHITE BLOOD COUNT 13.1 K/uL (4.8-10.8)
[2018-07-21] MEDS: Lactated Ringer's 1,000 ML IV SCH (09:00)
--- NOTE | 2018-07-21 14:14 | CP.PCM.PN ---
Subjective - Date & Time of Evaluation Date of Evaluation: 07/21/18 Time of Evaluation: 11:00 - Subjective Subjective: Surgery: Dr. Ojeda Pt seen and examined. No acute overnight events. States he feels well and pain is well controlled. Pt admits to tolerating his diet. Denies nausea/vomiting, fevers/chills. Objective - Vital Signs/Intake and Output Vital Signs (last 24 hours): Temp Pulse Resp BP Pulse Ox 97.6 F 67 20 136/90 95 07/21/18 07:00 07/21/18 07:00 07/21/18 07:00 07/21/18 07:00 07/21/18 07:00 Intake and Output: 07/21/18 07/21/18 06:59 18:59 Intake Total 2079 Balance 2079 - Medications Medications: Current Medications Docusate Sodium (Colace) 100 mg PO DAILY PHONG Last Admin: 07/21/18 10:16 Dose: 100 mg Ceftriaxone Sodium 1 gm/ (Sodium Chloride) 100 mls @ 100 mls/hr IVPB DAILY PHONG; Protocol Last Admin: 07/20/18 10:13 Dose: Not Given Lactated Ringer's (Lactated Ringer's) 1,000 mls @ 100 mls/hr IV .Q10H PHONG Last Admin: 07/21/18 09:00 Dose: 100 mls/hr Morphine Sulfate (Morphine) 2 mg IVP Q4 PRN PRN Reason: Pain, severe (8-10) Last Admin: 07/21/18 00:34 Dose: 2 mg Ondansetron HCl (Zofran Inj) 4 mg IVP Q6H PRN PRN Reason: Nausea/Vomiting Oxycodone HCl (Oxycodone Immediate Release Tab) 5 mg PO Q6 PRN PRN Reason: Pain, moderate (4-7) - Labs Labs: 07/21/18 08:26 07/21/18 07:05 PT 12.1 SECONDS (9.7-12.2) 07/20/18 08:45 INR 1.1 07/20/18 08:45 APTT 35 SECONDS (21-34) H 07/20/18 08:45 - Constitutional Appears: Well, No Acute Distress - Head Exam Head Exam: ATRAUMATIC, NORMOCEPHALIC - Eye Exam Eye Exam: Normal appearance - ENT Exam ENT Exam: Mucous Membranes Moist - Respiratory Exam Respiratory Exam: NORMAL BREATHING PATTERN - Cardiovascular Exam Cardiovascular Exam: RRR - GI/Abdominal Exam GI & Abdominal Exam: Soft, Tenderness (around incisions, C/D/I). absent: Distended, Guarding, Rebound - Neurological Exam Neurological Exam: Alert, Awake, Oriented x3 - Skin Skin Exam: Dry, Warm Assessment and Plan - Assessment and Plan (Free Text) Assessment: 42M s/p lap anna for gallstone pancreatitis; POD#1 Plan: - ok to DC from surgical standpoint - f/u as outpt in 1-[address] Ojeda - ok to shower, no heavy lifting > 15lbs for 4-6 weeks Kelly
[2018-07-21] MEDS ORDERED: Pneumococcal 23-Valent Vaccine IM ONE (14:23)
[2018-07-21] MEDS ORDERED: Influenza Vaccine 60 MCG/0.5 ML SYR (3 yr & up) IM ONE (14:23)
--- NOTE | 2018-07-21 15:04 | CP.PCM.DIS ---
Provider - Provider Date of Admission: 07/16/18 10:37 Attending physician: Michael Marquez MD Consults: Dr. Ojeda (surgery), Dr. Duvall (GI) Time Spent in preparation of Discharge (in minutes): 45 Diagnosis - Discharge Diagnosis (1) Gallstone pancreatitis Status: Acute Comment: Acute pancreatitis due to gallstones. Aggressive IV fluids, pain control, and cholecystectomy once symptoms resolved. Hospital Course - Lab Results Lab Results: Micro Results 07/16/18 12:50 Blood-Venous Blood Culture - Final NO GROWTH AFTER 5 DAYS 07/16/18 12:50 Blood-Venous Gram Stain - Final TEST NOT PERFORMED 07/16/18 12:20 Blood-Venous Blood Culture - Final NO GROWTH AFTER 5 DAYS 07/16/18 12:20 Blood-Venous Gram Stain - Final TEST NOT PERFORMED Most Recent Lab Values WBC 13.1 K/uL (4.8-10.8) H D 07/21/18 08:26 RBC 4.81 Mil/uL (4.40-5.90) 07/21/18 08:26 Hgb 14.5 g/dL (12.0-18.0) D 07/21/18 08:26 Hct 42.3 % (35.0-51.0) 07/21/18 08:26 MCV 87.9 fL (80.0-94.0) 07/21/18 08:26 MCH 30.1 pg (27.0-31.0) 07/21/18 08:26 MCHC 34.2 g/dL (33.0-37.0) 07/21/18 08:26 RDW 12.9 % (11.5-14.5) 07/21/18 08:26 Plt Count 225 K/uL (130-400) D 07/21/18 08:26 MPV 9.0 fL (7.2-11.7) 07/21/18 08:26 Neut % (Auto) 70.1 % (50.0-75.0) 07/21/18 08:26 Lymph % (Auto) 20.0 % (20.0-40.0) 07/21/18 08:26 [place] % (Auto) 6.8 % (0.0-10.0) 07/21/18 08:26 Eos % (Auto) 1.4 % (0.0-4.0) 07/21/18 08:26 Baso % (Auto) 1.7 % (0.0-2.0) 07/21/18 08:26 Neut # (Auto) 9.2 K/uL (1.8-7.0) H 07/21/18 08:26 Lymph # (Auto) 2.6 K/uL (1.0-4.3) 07/21/18 08:26 [place] # (Auto) 0.9 K/uL (0.0-0.8) H 07/21/18 08:26 Eos # (Auto) 0.2 K/uL (0.0-0.7) 07/21/18 08:26 Baso # (Auto) 0.2 K/uL (0.0-0.2) 07/21/18 08:26 Differential Comment 07/21/18 08:26 PT 12.1 SECONDS (9.7-12.2) 07/20/18 08:45 INR 1.1 07/20/18 08:45 APTT 35 SECONDS (21-34) H 07/20/18 08:45 pO2 24 mm/Hg (30-55) L 07/16/18 08:57 VBG pH 7.35 (7.32-7.43) 07/16/18 08:57 VBG pCO2 56 mmHg (40-60) 07/16/18 08:57 VBG HCO3 26.3 mmol/L 07/16/18 08:57 VBG Total CO2 32.6 mmol/L (22-28) H 07/16/18 08:57 VBG O2 Sat (Calc) 45.7 % (40-65) 07/16/18 08:57 VBG Base Excess 3.8 mmol/L (0.0-2.0) H 07/16/18 08:57 VBG Potassium 4.4 mmol/L (3.6-5.2) 07/16/18 08:57 Sodium 140.0 mmol/l (132-148) 07/16/18 08:57 Chloride 103.0 mmol/L (98-107) 07/16/18 08:57 Glucose 107 mg/dl (75-110) 07/16/18 08:57 Lactate 1.4 mmol/L (0.7-2.1) 07/16/18 08:57 Sodium 134 mmol/L (132-148) 07/21/18 07:05 Potassium 4.5 mmol/L (3.6-5.2) 07/21/18 07:05 Chloride 103 mmol/L (98-107) 07/21/18 07:05 Carbon Dioxide 23 mmol/L (22-30) 07/21/18 07:05 Anion Gap 12 (10-20) 07/21/18 07:05 BUN 24 mg/dL (9-20) H 07/21/18 07:05 Creatinine 0.8 mg/dL (0.8-1.5) 07/21/18 07:05 Est GFR ( Amer) > 60 07/21/18 07:05 Est GFR (Non-Af Amer) > 60 07/21/18 07:05 Random Glucose 111 mg/dL (75-110) H 07/21/18 07:05 Calcium 8.5 mg/dl (8.6-10.4) L 07/21/18 07:05 Total Bilirubin 0.2 mg/dL (0.2-1.3) 07/21/18 07:05 GGT 722 U/L (8-78) H 07/16/18 12:21 AST 19 U/L (17-59) 07/21/18 07:05 ALT 11 U/L (21-72) L D 07/21/18 07:05 Alkaline Phosphatase 127 U/L (38-126) H D 07/21/18 07:05 Lactate Dehydrogenase 475 U/L (313-618) 07/17/18 07:09 Total Protein 7.2 g/dL (6.3-8.3) 07/21/18 07:05 Albumin 3.1 g/dL (3.5-5.0) L D 07/21/18 07:05 Globulin 4.0 gm/dL (2.2-3.9) H 07/21/18 07:05 Albumin/Globulin Ratio 0.8 (1.0-2.1) L 07/21/18 07:05 Triglycerides 86 mg/dL (0-149) 07/17/18 07:09 Cholesterol 186 mg/dL (0-199) 07/17/18 07:09 LDL Cholesterol Direct 104 mg/dL (0-129) 07/17/18 07:09 HDL Cholesterol 38 mg/dL (30-70) 07/17/18 07:09 Lipase 1364 U/L (23-300) H 07/19/18 06:36 Venous Blood Potassium 4.4 mmol/L (3.6-5.2) 07/16/18 08:57 Urine Color [place] (YELLOW) 07/16/18 08:18 Urine Clarity Clear (Clear) 07/16/18 08:18 Urine pH 5.0 (5.0-8.0) 07/16/18 08:18 Ur Specific [place] 1.008 (1.003-1.030) 07/16/18 08:18 Urine Protein Negative mg/dL (NEGATIVE) 07/16/18 08:18 Urine Glucose (UA) Normal mg/dL (Normal) 07/16/18 08:18 Urine Ketones Negative mg/dL (NEGATIVE) 07/16/18 08:18 Urine Blood Negative (NEGATIVE) 07/16/18 08:18 Urine Nitrate Negative (NEGATIVE) 07/16/18 08:18 Urine Bilirubin Negative (NEGATIVE) 07/16/18 08:18 Urine Urobilinogen 2.0 mg/dL (0.2-1.0) 07/16/18 08:18 Ur Leukocyte Esterase Neg [place]/uL (Negative) 07/16/18 08:18 Urine WBC (Auto) 1 /hpf (0-5) 07/16/18 08:18 Urine RBC (Auto) < 1 /hpf (0-3) 07/16/18 08:18 Ur Squamous Epith Cells < 1 /hpf (0-5) 07/16/18 08:18 Urine Bacteria Rare (<OCC) 07/16/18 08:18 Acetaminophen < 10.0 ug/mL (10.0-30.0) L 07/16/18 12:21 Alcohol, Quantitative < 10 mg/dl (0-10) 07/16/18 12:21 - Hospital Course Hospital Course: H&P: 42 M w/ PMHx of pancreatitis, arrives to ED for increasing abdominal pain. Patient states pain began since he was discharged a week ago for acute pancreatitis. Initially the pain was to a minimum; however, over the past day, the pain increased in intensity that he could no longer stand the pain. Patient had 1X non bilious, non bloody vomiting yesterday, denies F/C. Patient describes the pain as episodic, 7/10 at its worse, 1/10 at its best, mid abdominal/ periumbilical, radiating to b/l back. Patient has maintained a soft diet. Patient denies chest pain, hematura, dysuria, changes in BM, headaches, vision changes. During hospitalization, patient had elevated lipase of 44804d, elevated LFTs, had MRCP performed: Gallbladder sludge. No evidence of biliary obstruction. No evidence of cholecystitis. Abd U/S: Probable fatty hepatic infiltration however other infiltrative hepatocellular disease process not excluded. Cholelithiasis with intraluminal gallbladder sludge. Limited evaluation of the pancreas due to body habitus and bowel gas. Patient had IV hydration w/ LRs. Symptoms resolved. Patient had laproscopy cholecystectomy with no complications. Patient had minimal pain post op. [place] much better. Lipase downtrend to 1000s and LFTs downtrend. Patient tolerate diet post op and felt minimal pain. Patient informed to drink prune juice to assist in bowel movements. Above is only a brief summary of patients stay during hospitalization. See EMR for full details. Below are the discharge instructions provided to the patient upon discharge. Instructions were thoroughly explained to the patient with his cousin present who was able to translate. Patient agree and understood the instructions. Patient is stable for discharge per Dr. Marquez. 1) Patient should take the following medication for severe pain only: Percocet 5/325 mg per mouth every eight hours only when you are in severe pain. 2) Please drink 8 oz of prune juice with breakfast and dinner until you have a bowel movement. 3) Please continue to use the incentive spirometry, 10 times a hour when you are awake to prevent pneumonia. 4) Please do not lift more than 10 lbs for 4 to 6 weeks 5) Bandaids can be removed tomorrow. 6) Steristrips stay on until they fall off 7) You may shower, but please do not soak yourself in water 8) Please follow up with the following doctors: Follow up with the following doctor in 1 week: [facility] [address], [place] [phone] Follow up with the following doctor in 2 weeks: Dr. Raimundo Ojeda [address] [facility] [address] [place], [place] [phone] If any of the symptoms arise, please return to your closest emergency facility. Take care Discharge Exam - Head Exam Head Exam: ATRAUMATIC, NORMOCEPHALIC - Eye Exam Eye Exam: EOMI, Normal appearance Pupil Exam: NORMAL ACCOMODATION, PERRL - ENT Exam ENT Exam: Mucous Membranes Moist - Respiratory Exam Respiratory Exam: Clear to PA & Lateral, NORMAL BREATHING PATTERN, UNREMARKABLE. absent: Rales, Rhonchi, Wheezes - Cardiovascular Exam Cardiovascular Exam: +S1, +S2. absent: Systolic Murmur - GI/Abdominal Exam GI & Abdominal Exam: Normal Bowel Sounds, Soft, Tenderness Additional comments: Patient has 4 sites of trochar placement from his surgery that is currently wrapped in dressing. Surgical site/dressing is clean, dry, intact with no erythema. - Extremities Exam Additional comments: No pedal edema, no tenderness - Back Exam Back exam: absent: CVA tenderness (L), CVA tenderness (R) - Neurological Exam Neurological exam: Alert, Oriented x3 - Psychiatric Exam Psychiatric exam: Normal Affect, Normal Mood - Skin Skin Exam: Dry, Intact, Normal Color Discharge Plan - Discharge Medications Prescriptions: oxyCODONE/Acetaminophen [Percocet 5/325 mg Tab] 1 ea PO Q8H PRN #15 tab PRN Reason: Pain, Severe (8-10) - Follow Up Plan Condition: SERIOUS Disposition: HOME/ ROUTINE Instructions: Pancreatitis (DC), Cholecystectomy (DC), Gallstones (DC), Oxycodone and Acetaminophen Additional Instructions: Patient is stable for discharge per Dr. Marquez. 1) Patient should take the following medication for severe pain only: Percocet 5/325 mg per mouth every eight hours only when you are in severe pain. 2) Please drink 8 oz of prune juice with breakfast and dinner until you have a bowel movement. 3) Please continue to use the incentive spirometry, 10 times a hour when you are awake to prevent pneumonia. 4) Please do not lift more than 10 lbs for 4 to 6 weeks 5) Bandaids can be removed tomorrow. 6) Steristrips stay on until they fall off 7) You may shower, but please do not soak yourself in water 8) Please follow up with the following doctors: Follow up with the following doctor in 1 week: [address] [phone] Follow up with the following doctor in 2 weeks: Dr. Raimundo Ojeda [address] [place], [place] [phone] If any of the symptoms arise, please return to your closest emergency facility. Take care Referrals: Raimundo Ojeda MD [Staff Provider] -
== END 2018-07-21 15:15 | disposition home or self-care (01) | DRG 263 ==
LOC: C.ER 07:29 → C.9E 10:37 → C.3T 15:53 → C.9E 15:54 → C.6T 17:07 → C.3T 07-19 18:46
PROVIDERS: ADMIT Family Medicine; ATTEND Family Medicine
PROC: 0FT44ZZ Resection of Gallbladder, Percutaneous Endoscopic Approach (ICD-10-PCS; principal; 2018-07-20 12:00)
DX: K85.10 Biliary acute pancreatitis without necrosis or infection (principal); K80.10 Calculus of gallbladder with chronic cholecystitis without obstruction; F17.210 Nicotine dependence, cigarettes, uncomplicated; R74.0 Nonspecific elevation of levels of transaminase and lactic acid dehydrogenase [LDH]